=== PATIENT | male | born 1970 | race Hispanic/Latino ===

== ENCOUNTER → 2017-09-24 | Outpatient (CLI) | payer OTHER ==
[2017-09-24 08:30] LABS: BASOPHILS % (AUTO) 0.4 % (0.0-5.0); EOSINOPHILS % (AUTO) 2.4 % (0.0-8.0); HEMATOCRIT 43.8 % (42-54); LYMPHOCYTES % (AUTO) 42.9 % (21.0-51.0); MEAN CORPUSCULAR HEMOGLOBIN 30.2 pg (27.0-33.0); MEAN CORPUSCULAR HGB CONC 33.5 g/dL (32.0-36.0); MEAN CORPUSCULAR VOLUME 90.2 fL (79-99); MONOCYTES % (AUTO) 8.5 % (3.0-13.0); NEUTROPHILS % (AUTO) 45.8 % (40.0-77.0); PLATELET COUNT (AUTO) 234 K/uL (130-400); RED BLOOD CELL COUNT(AUTO) 4.86 MIL/uL (4.50-6.20); RED CELL DISTRIBUTION WIDTH 13.6 % (11.0-15.5); WHITE BLOOD COUNT (AUTO) 4.4 K/uL (4.8-10.8)
[2017-09-24 08:53] LABS: BILIRUBIN,TOTAL 0.5 mg/dL (0.2-1.0); CREATININE 1.2 mg/dL (0.5-1.5); POTASSIUM 4.1 mmol/L (3.5-5.1); THYROID STIMULATING HORMONE 0.96 uIU/mL (0.36-3.74); TOTAL PROTEIN, SERUM 7.6 g/dL (6.0-8.3); URIC ACID 6.4 mg/dL (2.6-7.2)
== END | disposition home or self-care (01) ==
LOC: LAB 07:43
PROVIDERS: ATTEND Internal Medicine
DX: I10 Essential (primary) hypertension (principal); E03.9 Hypothyroidism, unspecified; E78.5 Hyperlipidemia, unspecified
CPT/HCPCS: 36415; 80053; 84443; 84550; 85025

== ENCOUNTER 2018-06-10 19:03 | Emergency (ER) | payer OTHER ==
[2018-06-10 19:41] LABS: BASOPHILS % (AUTO) 0.3 % (0.0-5.0); EOSINOPHILS % (AUTO) 1.4 % (0.0-8.0); HEMATOCRIT 48.2 % (42-54); MEAN CORPUSCULAR HEMOGLOBIN 30.6 pg (27.0-33.0); MEAN CORPUSCULAR HGB CONC 33.8 g/dL (32.0-36.0); MEAN CORPUSCULAR VOLUME 90.4 fL (79-99); MONOCYTES % (AUTO) 6.3 % (3.0-13.0); NUCLEATED RED BLOOD CELLS 0.1 % (0.0-0.19); PLATELET COUNT (AUTO) 220 K/uL (130-400); RED BLOOD CELL COUNT(AUTO) 5.33 MIL/uL (4.50-6.20); RED CELL DISTRIBUTION WIDTH 13.4 % (11.0-15.5); WHITE BLOOD COUNT (AUTO) 5.4 K/uL (4.8-10.8)
[2018-06-10 19:53] LABS: CREATININE 1.1 mg/dL (0.5-1.5); POTASSIUM 3.7 mmol/L (3.5-5.1)
[2018-06-10 19:58] LABS: ALBUMIN 4.2 g/dL (3.5-5.0); BILIRUBIN,TOTAL 0.5 mg/dL (0.2-1.0); TOTAL PROTEIN, SERUM 8.6 g/dL (6.0-8.3)
== END 2018-06-10 21:14 | disposition home or self-care (01) ==
LOC: EDH 19:03
DX: I10 Essential (primary) hypertension (principal); F41.1 Generalized anxiety disorder; Z87.891 Personal history of nicotine dependence
CPT/HCPCS: 36415; 80053; 84484; 85025; 93005

== ENCOUNTER → 2018-09-30 | Outpatient (CLI) | payer OTHER ==
[2018-09-30 09:33] LABS: HEMOGLOBIN A1C 5.6 % (4.0-6.0)
[2018-09-30 09:42] LABS: BILIRUBIN,TOTAL 0.4 mg/dL (0.2-1.0); CREATININE 1.1 mg/dL (0.5-1.5); POTASSIUM 4.3 mmol/L (3.5-5.1); THYROID STIMULATING HORMONE 1.98 uIU/mL (0.36-3.74); TOTAL PROTEIN, SERUM 7.6 g/dL (6.0-8.3)
[2018-09-30 10:10] LABS: BASOPHILS % (AUTO) 0.3 % (0.0-5.0); EOSINOPHILS % (AUTO) 1.4 % (0.0-8.0); HEMATOCRIT 41.7 % (42-54); LYMPHOCYTES % (AUTO) 41.3 % (21.0-51.0); MEAN CORPUSCULAR HEMOGLOBIN 31.7 pg (27.0-33.0); MEAN CORPUSCULAR HGB CONC 34.8 g/dL (32.0-36.0); MEAN CORPUSCULAR VOLUME 91.2 fL (79-99); MONOCYTES % (AUTO) 7.6 % (3.0-13.0); NEUTROPHILS % (AUTO) 49.4 % (40.0-77.0); NUCLEATED RED BLOOD CELLS 0.1 % (0.0-0.19); PLATELET COUNT (AUTO) 227 K/uL (130-400); RED BLOOD CELL COUNT(AUTO) 4.57 MIL/uL (4.50-6.20); RED CELL DISTRIBUTION WIDTH 13.4 % (11.0-15.5); WHITE BLOOD COUNT (AUTO) 5.2 K/uL (4.8-10.8)
== END | disposition home or self-care (01) ==
LOC: LAB 08:43
PROVIDERS: ATTEND Internal Medicine
DX: Z13.1 Encounter for screening for diabetes mellitus (principal); E03.8 Other specified hypothyroidism; R10.13 Epigastric pain
CPT/HCPCS: 36415; 80053; 80061; 83013; 83036; 84443; 85025

== ENCOUNTER → 2019-04-27 | Outpatient (CLI) | payer OTHER ==
[2019-04-27 10:29] LABS: HEMATOCRIT 44.6 % (42-54); MEAN CORPUSCULAR HGB CONC 34.1 g/dL (32.0-36.0); MEAN CORPUSCULAR VOLUME 90.9 fL (79-99); PLATELET COUNT (AUTO) 214 K/uL (130-400); RED BLOOD CELL COUNT(AUTO) 4.91 MIL/uL (4.50-6.20); RED CELL DISTRIBUTION WIDTH 12.9 % (11.0-15.5); WHITE BLOOD COUNT (AUTO) 3.6 K/uL (4.8-10.8)
[2019-04-27 10:37] LABS: HEMOGLOBIN A1C 6.1 % (4.0-6.0)
[2019-04-27 10:39] LABS: BASOPHILS % (AUTO) 0.4 % (0.0-5.0); BILIRUBIN,DIRECT 0.1 mg/dL (0.0-0.3); BILIRUBIN,TOTAL 0.3 mg/dL (0.2-1.0); CREATININE 1.1 mg/dL (0.5-1.5); EOSINOPHILS % (AUTO) 2.3 % (0.0-8.0); LYMPHOCYTES % (AUTO) 39.5 % (21.0-51.0); NEUTROPHILS % (AUTO) 50.8 % (40.0-77.0); POTASSIUM 4.1 mmol/L (3.5-5.1); TOTAL PROTEIN, SERUM 7.6 g/dL (6.0-8.3)
== END | disposition home or self-care (01) ==
LOC: RAH 09:28
PROVIDERS: ATTEND Internal Medicine
DX: E78.5 Hyperlipidemia, unspecified (principal); I10 Essential (primary) hypertension; E55.9 Vitamin D deficiency, unspecified; R10.13 Epigastric pain; R00.2 Palpitations
CPT/HCPCS: 36415; 80053; 80061; 80076; 82043; 82570; 83013; 83036; 84402; 84403; 85025

== ENCOUNTER → 2019-05-11 | Outpatient (CLI) | payer OTHER | END | disposition home or self-care (01) | LOC: RAH 12:36 | PROVIDERS: ATTEND Internal Medicine | DX: S66.919A Strain of unspecified muscle, fascia and tendon at wrist and hand level, unspecified hand, initial encounter (principal); M13.842 Other specified arthritis, left hand; X58.XXXA Exposure to other specified factors, initial encounter; Y93.89 Activity, other specified; Y92.89 Other specified places as the place of occurrence of the external cause; Y99.8 Other external cause status | CPT/HCPCS: 73218 ==

== ENCOUNTER → 2019-09-27 | Outpatient (CLI) | payer OTHER ==
[2019-09-27 09:21] LABS: BASOPHILS % (AUTO) 0.1 % (0.0-5.0); LYMPHOCYTES % (AUTO) 7.9 % (21.0-51.0); MEAN CORPUSCULAR HGB CONC 34.1 g/dL (32.0-36.0); MEAN CORPUSCULAR VOLUME 88.1 fL (79-99); MONOCYTES % (AUTO) 3.3 % (3.0-13.0); NEUTROPHILS % (AUTO) 86.4 % (40.0-77.0); PLATELET COUNT (AUTO) 298 K/uL (130-400); RED BLOOD CELL COUNT(AUTO) 5.56 MIL/uL (4.50-6.20); RED CELL DISTRIBUTION WIDTH 12.7 % (11.0-15.5); WHITE BLOOD COUNT (AUTO) 11.2 K/uL (4.8-10.8)
[2019-09-27 09:32] LABS: HEMOGLOBIN A1C 6.2 % (4.0-6.0)
[2019-09-27 09:42] LABS: ALBUMIN 4.1 g/dL (3.5-5.0); BILIRUBIN,DIRECT 0.1 mg/dL (0.0-0.3); BILIRUBIN,TOTAL 0.4 mg/dL (0.2-1.0); CREATININE 1.1 mg/dL (0.5-1.5); POTASSIUM 4.3 mmol/L (3.5-5.1); THYROID STIMULATING HORMONE 1.19 uIU/mL (0.36-3.74); TOTAL PROTEIN, SERUM 8.5 g/dL (6.0-8.3)
== END | disposition home or self-care (01) ==
LOC: LAB 08:09
PROVIDERS: ATTEND Internal Medicine
DX: S66.912A Strain of unspecified muscle, fascia and tendon at wrist and hand level, left hand, initial encounter (principal); E78.5 Hyperlipidemia, unspecified; I10 Essential (primary) hypertension; R73.01 Impaired fasting glucose; X58.XXXA Exposure to other specified factors, initial encounter; Y93.89 Activity, other specified; Y92.89 Other specified places as the place of occurrence of the external cause; Y99.8 Other external cause status
CPT/HCPCS: 36415; 80053; 80061; 80076; 82043; 83036; 84403; 84443; 85025

== ENCOUNTER → 2020-01-11 | Outpatient (CLI) | payer OTHER ==
[2020-01-11 09:42] LABS: BASOPHILS % (AUTO) 0.4 % (0.0-5.0); EOSINOPHILS % (AUTO) 1.1 % (0.0-8.0); HEMATOCRIT 43.5 % (42-54); LYMPHOCYTES % (AUTO) 43.8 % (21.0-51.0); MEAN CORPUSCULAR HEMOGLOBIN 30.3 pg (27.0-33.0); MEAN CORPUSCULAR HGB CONC 33.6 g/dL (32.0-36.0); MEAN CORPUSCULAR VOLUME 90.2 fL (79-99); MONOCYTES % (AUTO) 7.1 % (3.0-13.0); NEUTROPHILS % (AUTO) 47.2 % (40.0-77.0); PLATELET COUNT (AUTO) 219 K/uL (130-400); RED BLOOD CELL COUNT(AUTO) 4.82 MIL/uL (4.50-6.20); RED CELL DISTRIBUTION WIDTH 12.8 % (11.0-15.5); WHITE BLOOD COUNT (AUTO) 5.3 K/uL (4.8-10.8)
[2020-01-11 09:49] LABS: HEMOGLOBIN A1C 6.3 % (4.0-6.0)
[2020-01-11 09:53] LABS: ALBUMIN 3.8 g/dL (3.5-5.0); BILIRUBIN,TOTAL 0.3 mg/dL (0.2-1.0); TOTAL PROTEIN, SERUM 7.4 g/dL (6.0-8.3)
== END | disposition home or self-care (01) ==
LOC: RAH 07:48
PROVIDERS: ATTEND Internal Medicine
DX: M17.12 Unilateral primary osteoarthritis, left knee (principal)
CPT/HCPCS: 36415; 73560; 80053; 80061; 82550; 83036; 85025

== ENCOUNTER → 2020-01-13 | Outpatient (CLI) | payer OTHER | END | disposition home or self-care (01) | LOC: RAH 12:25 | PROVIDERS: ATTEND Internal Medicine | DX: M47.12 Other spondylosis with myelopathy, cervical region (principal); G95.9 Disease of spinal cord, unspecified | CPT/HCPCS: 72141 ==

== ENCOUNTER → 2020-04-09 | Outpatient (CLI) | payer OTHER ==
[~2020-04-09] MED LIST: BACL10TA PO; NAPR-1174 PO; PANT40SU PO; VENL-61 PO
== END | disposition home or self-care (01) ==
LOC: RAH 10:53
PROVIDERS: ATTEND Internal Medicine
DX: K57.30 Diverticulosis of large intestine without perforation or abscess without bleeding (principal); R10.814 Left lower quadrant abdominal tenderness; K57.92 Diverticulitis of intestine, part unspecified, without perforation or abscess without bleeding
CPT/HCPCS: 74176

== ENCOUNTER 2020-04-12 23:07 | Observation (INO) | payer OTHER ==
[~2020-04-12] VITALS: Ht 172.7 cm; Wt 109.8 kg
[2020-04-12] MEDS ORDERED: TETANUS/DIPHTHERIA TOXOID [ADULT] 0.5 ML VIAL IM ONE (23:23)
[2020-04-13] VITALS (20 sets, daily range): BP systolic 95–144; BP diastolic 59–83
[2020-04-13] MEDS ORDERED: CEFAZOLIN SODIUM 1 GM VIAL ONE (00:36)
[2020-04-13] MEDS ORDERED: SODIUM CHLORIDE 0.9% 100 ML IV ONE (00:37)
[2020-04-13 00:52] LABS: BASOPHILS % (AUTO) 0.2 % (0.0-5.0); EOSINOPHILS % (AUTO) 2.4 % (0.0-8.0); HEMATOCRIT 39.7 % (42-54); LYMPHOCYTES % (AUTO) 28.9 % (21.0-51.0); MEAN CORPUSCULAR HEMOGLOBIN 30.4 pg (27.0-33.0); MEAN CORPUSCULAR HGB CONC 34.5 g/dL (32.0-36.0); MONOCYTES % (AUTO) 9.3 % (3.0-13.0); NEUTROPHILS % (AUTO) 58.9 % (40.0-77.0); PLATELET COUNT (AUTO) 216 K/uL (130-400); RED BLOOD CELL COUNT(AUTO) 4.51 MIL/uL (4.50-6.20); RED CELL DISTRIBUTION WIDTH 12.8 % (11.0-15.5); WHITE BLOOD COUNT (AUTO) 5.9 K/uL (4.8-10.8)
[2020-04-13 00:56] LABS: INR 0.91 (0.85-1.15); PARTIAL THROMBOPLASTIN TIME 27.8 SEC (26.3-35.5); PROTHROMBIN TIME 9.9 SEC (9.6-11.6)
[2020-04-13 01:09] LABS: CREATININE 0.9 mg/dL (0.5-1.5); POTASSIUM 3.5 mmol/L (3.5-5.1)
[2020-04-13 01:11] LABS: ALBUMIN 3.8 g/dL (3.5-5.0); BILIRUBIN,TOTAL 0.4 mg/dL (0.2-1.0); TOTAL PROTEIN, SERUM 7.7 g/dL (6.0-8.3)
--- NOTE | 2020-04-13 02:00 | NUR ---
ADMISSION PT ADMITTED FROM ER AMBULATORY WITH STEADY GAIT. ORIENTED TO ROOM AND CALL NG. A&OX3, RA. SMALL LACERATION TO RIGHT 3RD DIGIT. REPORTS NUMBNESS OF ALL FINGERS OF THE RIGHT HAND, NO TINGLING. CAP REFILL <2 SECONDS. RADIAL PULSE +2.
[2020-04-13] MEDS ORDERED: NAPR-1174 PO (02:35)
[2020-04-13] MEDS ORDERED: VENL-61 PO (02:43)
[2020-04-13] MEDS ORDERED: PANT40SU PO (02:47)
[2020-04-13] MEDS ORDERED: BACL10TA PO (02:48)
[2020-04-13 03:00] LABS: APPEARANCE,URINE Clear (CLEAR); BILIRUBIN,URINE Negative (NEGATIVE); COLOR,URINE Yellow (YELLOW); GLUCOSE, URINE (UA) Negative (NEGATIVE); KETONES,URINE Negative (NEGATIVE); LEUKOCYTE ESTERASE ,URINE Negative (NEGATIVE); NITRATE,URINE Negative (NEGATIVE); OCCULT BLOOD,URINE Negative (NEGATIVE); PH,URINE 5.5 (5.0-8.0); PROTEIN,URINE Negative (NEGATIVE)
--- NOTE | 2020-04-13 03:08 | NUR ---
ORDER CLARIFICATION CALL TO DR BORJA WRITTEN ORDER IS FOR TYLENOL #3 AND PT IS ALLERGIC TO CODEINE. PER DR BORJA CALL PHARMACY TO HAVE THEM SUBSTITUTE ANOTHER MEDICATION. CALL TO OFF SITE PHARMACIST HE IS UNABLE TO SUBSTITUTE MEDICATION OUT OF HIS SCOPE OF PRACTICE.
[2020-04-13] MEDS ORDERED: MORPHINE SULFATE 2 MG/ML 1ML SYG IVP PRN (05:15)
--- NOTE | 2020-04-13 07:45 | NUR ---
AM ASSESSMENT PT SITTING IN BED, HOB ELEVATED 30 DEGREES, RESTING. A/O X 3. NO SOB. NO DISTRESS NOTED. DENIES CHEST PAIN OR DISCOMFORT. DENIES PALPITATIONS. DENIES N/V AND/OR DIARRHEA. NPO STATUS REINFORCED. PT TO HAVE SX TO RT 3rd DIGIT BY DR BORJA. RT 3rD DIGIT BRUISED & EDEMATOUS. NO DRAINAGE NOTED. DENIES PAIN TO DIGIT. C/O NUMBNESS TO RT 3rd DIGIT. UP AD ISHAAN. INSTRUCTED TO CALL FOR ASSISTANCE. CALL BERENICE W/IN REACH.
--- NOTE | 2020-04-13 08:45 | NUR ---
STATUS PT TAKEN TO PRE-OP HOLDING VIA BED. [id number]
[2020-04-13] MEDS ORDERED: CEFAZOLIN SODIUM 1 GM VIAL IVP SCH (09:00)
[2020-04-13] MEDS ORDERED: LIDOCAINE HCL 1% 20 ML VIAL ONE (09:13)
--- NOTE | 2020-04-13 10:34 | NUR ---
DC PLAN PATIENT IN COVID UNIT SAW ORDER SAID MED SURGE WILL ASK CHARGE NURSE OF LOCATION. CALLED ROOM NO ANSWER CALLED CHUY VORA MOTHER [phone] NO ANSWER. Addendum: 04/13/20 at 1036 by JEET RAMOS RN CM Amended: Links added.
--- NOTE | 2020-04-13 11:20 | NUR ---
STATUS PT RECEIVED FROM PACU, S/P RT 3rd DIGIT PINNING. DG DRY & INTACT. NO BLEEDING, NO DRAINAGE NOTED. SLING TO RT ARM. EUGENIE PAIN OR DISCOMFORT @ THIS TIME. PT TO BE DISCHARGED HOME TODAY.
--- NOTE | 2020-04-13 13:00 | NUR ---
DISCHARGE VERBAL & WRITTEN DISCHARGE INSTRUCTIONS REVIEWED & GIVEN TO PT. QUESTIONS ENCOURAGED & CLARIFIED. PROPER CARE & ACTIVITY AFTER RT 3rd DIGIT PINNING REVIEWED. NEW PRESCRIBED MEDICATION REVIEWED. REINFORCED IMPORTANCE OF TAKING ABX INDICATED. PRESCRIPTION GIVEN TO PT. SIGNED COPY OF PRESCRIPTION PLACED IN CHART. IV DC'D @ THIS TIME. PT TO GATHER PERSONAL BELONGINGS. FAMILY MEMBER TO COUNTERINTELLIGENCE AGENT PT FROM HOSPITAL. PT TO NOTIFY STAFF WHEN FAMILY ARRIVES TO HOSPITAL.
--- NOTE | 2020-04-13 13:40 | NUR ---
DISCHARGE PT'S FAMILY HERE TO TAKE PT HOME. PT AMBULATED TO HOSPITAL EXIT,ACCOMPANIED BY MYSELF-Papito GRAMAJO RN. PT TOLERATED WELL. NO DISTRESS NOTED.
== END 2020-04-13 13:40 | disposition home or self-care (01) ==
LOC: EDH 23:07 → INTOOBSV 04-13 00:15 → EDHIP 04-13 00:15 → 2AH 04-13 02:21
PROVIDERS: ADMIT Surgery Plastic and Reconstructive Surgery; ATTEND Surgery Plastic and Reconstructive Surgery
DX: S62.632B Displaced fracture of distal phalanx of right middle finger, initial encounter for open fracture (principal); F32.9 Major depressive disorder, single episode, unspecified; Z88.5 Allergy status to narcotic agent; Z20.828 Contact with and (suspected) exposure to other viral communicable diseases; W23.0XXA Caught, crushed, jammed, or pinched between moving objects, initial encounter; Y93.89 Activity, other specified; Y92.89 Other specified places as the place of occurrence of the external cause; Y99.8 Other external cause status
CPT/HCPCS: 26765; 36415; 73130; 80053; 81003; 85025; 85610; 85730; 87426; 90471; 90714; 93005; 96374; 99285; A6445; G0378 ×13; J0690; U0003

== ENCOUNTER → 2020-05-22 | Outpatient (CLI) | payer OTHER ==
[2020-05-22 09:48] LABS: BASOPHILS % (AUTO) 0.5 % (0.0-5.0); HEMATOCRIT 43.4 % (42-54); LYMPHOCYTES % (AUTO) 32.4 % (21.0-51.0); MEAN CORPUSCULAR HGB CONC 33.6 g/dL (32.0-36.0); MEAN CORPUSCULAR VOLUME 89.3 fL (79-99); NEUTROPHILS % (AUTO) 56.8 % (40.0-77.0); PLATELET COUNT (AUTO) 235 K/uL (130-400); RED BLOOD CELL COUNT(AUTO) 4.86 MIL/uL (4.50-6.20); RED CELL DISTRIBUTION WIDTH 12.7 % (11.0-15.5)
[2020-05-22 09:59] LABS: APPEARANCE,URINE Clear (CLEAR); BILIRUBIN,URINE Negative (NEGATIVE); COLOR,URINE Yellow (YELLOW); GLUCOSE, URINE (UA) Negative (NEGATIVE); KETONES,URINE Negative (NEGATIVE); LEUKOCYTE ESTERASE ,URINE Negative (NEGATIVE); NITRATE,URINE Negative (NEGATIVE); OCCULT BLOOD,URINE Negative (NEGATIVE); PROTEIN,URINE Negative (NEGATIVE)
[2020-05-22 10:01] LABS: HEMOGLOBIN A1C 6.4 % (4.0-6.0)
[2020-05-22 10:12] LABS: ALBUMIN 3.9 g/dL (3.5-5.0); BILIRUBIN,TOTAL 0.4 mg/dL (0.2-1.0); CREATININE 0.9 mg/dL (0.5-1.5); POTASSIUM 4.3 mmol/L (3.5-5.1); THYROID STIMULATING HORMONE 1.69 uIU/mL (0.36-3.74); TOTAL PROTEIN, SERUM 7.9 g/dL (6.0-8.3)
== END | disposition home or self-care (01) ==
LOC: LAB 08:08
PROVIDERS: ATTEND Internal Medicine
DX: R73.01 Impaired fasting glucose (principal); G95.9 Disease of spinal cord, unspecified; F32.5 Major depressive disorder, single episode, in full remission; F41.1 Generalized anxiety disorder; K57.92 Diverticulitis of intestine, part unspecified, without perforation or abscess without bleeding; R10.814 Left lower quadrant abdominal tenderness
CPT/HCPCS: 36415; 80053; 80061; 81003; 83036; 84443; 85025; 87088

== ENCOUNTER 2020-08-08 19:13 | Emergency (ER) | payer OTHER ==
[2020-08-08] MEDS ORDERED: ONDANSETRON HCL 4 MG/2 ML VIAL ONE (20:52)
[2020-08-08] MEDS ORDERED: MORPHINE SULFATE 2 MG/ML 1ML SYG ONE (20:53)
[2020-08-08] MEDS ORDERED: SODIUM CHLORIDE 0.9% 1000ML 1,000 ML IV ONE (20:53)
[2020-08-08 21:03] LABS: APPEARANCE,URINE Clear (CLEAR); BILIRUBIN,URINE Negative (NEGATIVE); COLOR,URINE Dark Yellow (YELLOW); GLUCOSE, URINE (UA) Negative (NEGATIVE); KETONES,URINE Trace mg/dL (NEGATIVE); LEUKOCYTE ESTERASE ,URINE Negative (NEGATIVE); NITRATE,URINE Negative (NEGATIVE); OCCULT BLOOD,URINE Negative (NEGATIVE); PROTEIN,URINE Negative (NEGATIVE)
[2020-08-08 21:10] LABS: BASOPHILS % (AUTO) 0.2 % (0.0-5.0); EOSINOPHILS % (AUTO) 0.8 % (0.0-8.0); HEMATOCRIT 43.4 % (42-54); LYMPHOCYTES % (AUTO) 16.2 % (21.0-51.0); MEAN CORPUSCULAR HGB CONC 33.6 g/dL (32.0-36.0); MEAN CORPUSCULAR VOLUME 86.3 fL (79-99); NEUTROPHILS % (AUTO) 76.7 % (40.0-77.0); PLATELET COUNT (AUTO) 283 K/uL (130-400); RED BLOOD CELL COUNT(AUTO) 5.03 MIL/uL (4.50-6.20); RED CELL DISTRIBUTION WIDTH 12.6 % (11.0-15.5); WHITE BLOOD COUNT (AUTO) 8.6 K/uL (4.8-10.8)
[2020-08-08 21:15] LABS: CREATININE 1.2 mg/dL (0.5-1.5); POTASSIUM 3.9 mmol/L (3.5-5.1)
[2020-08-08 21:18] LABS: INR 0.92 (0.85-1.15); PARTIAL THROMBOPLASTIN TIME 25.9 SEC (26.3-35.5)
[2020-08-08 21:20] LABS: ALBUMIN 3.9 g/dL (3.5-5.0); BILIRUBIN,TOTAL 0.3 mg/dL (0.2-1.0); TOTAL PROTEIN, SERUM 8.2 g/dL (6.0-8.3)
[2020-08-08 21:23] LABS: LIPASE 105 U/L (114-286)
[2020-08-08] MEDS ORDERED: LEVOFLOXACIN 500 MG/D5W 100 ML 100 ML ONE (21:40)
[2020-08-08] MEDS ORDERED: METRONIDAZOLE 500MG/100ML BAG 100 ML ONE (21:40)
== END 2020-08-09 00:45 | disposition home or self-care (01) ==
LOC: EDH 19:13
DX: K57.30 Diverticulosis of large intestine without perforation or abscess without bleeding (principal); R11.2 Nausea with vomiting, unspecified; R19.7 Diarrhea, unspecified; F32.9 Major depressive disorder, single episode, unspecified; Z88.6 Allergy status to analgesic agent; Z79.899 Other long term (current) drug therapy; Z98.890 Other specified postprocedural states
CPT/HCPCS: 36415; 74176; 80053; 81003; 82270; 83605; 83690; 84145; 85025; 85610; 85730; 87046; 87324; 96361; 96365; 96366; 96367; 96375; 99284; J1956; J2405; J3490; J7030

== ENCOUNTER → 2020-08-14 | Outpatient (CLI) | payer OTHER ==
[2020-08-14 08:19] LABS: BASOPHILS % (AUTO) 0.2 % (0.0-5.0); EOSINOPHILS % (AUTO) 1.7 % (0.0-8.0); MEAN CORPUSCULAR HEMOGLOBIN 29.4 pg (27.0-33.0); MEAN CORPUSCULAR HGB CONC 33.4 g/dL (32.0-36.0); MONOCYTES % (AUTO) 7.5 % (3.0-13.0); NEUTROPHILS % (AUTO) 66.4 % (40.0-77.0); PLATELET COUNT (AUTO) 208 K/uL (130-400); RED BLOOD CELL COUNT(AUTO) 4.66 MIL/uL (4.50-6.20); RED CELL DISTRIBUTION WIDTH 13.1 % (11.0-15.5); WHITE BLOOD COUNT (AUTO) 5.9 K/uL (4.8-10.8)
[2020-08-14 08:42] LABS: ALBUMIN 3.7 g/dL (3.5-5.0); BILIRUBIN,DIRECT 0.1 mg/dL (0.0-0.3); BILIRUBIN,TOTAL 0.4 mg/dL (0.2-1.0); THYROID STIMULATING HORMONE 1.71 uIU/mL (0.36-3.74); TOTAL PROTEIN, SERUM 7.6 g/dL (6.0-8.3); URIC ACID 7.2 mg/dL (2.6-7.2)
[2020-08-14 08:53] LABS: HEMOGLOBIN A1C 6.8 % (4.0-6.0)
== END | disposition home or self-care (01) ==
LOC: LAB 07:41
PROVIDERS: ATTEND Internal Medicine
DX: S60.00XA Contusion of unspecified finger without damage to nail, initial encounter (principal); S62.639A Displaced fracture of distal phalanx of unspecified finger, initial encounter for closed fracture; M41.20 Other idiopathic scoliosis, site unspecified; K57.92 Diverticulitis of intestine, part unspecified, without perforation or abscess without bleeding; M47.816 Spondylosis without myelopathy or radiculopathy, lumbar region; M50.90 Cervical disc disorder, unspecified, unspecified cervical region; M54.12 Radiculopathy, cervical region; R73.01 Impaired fasting glucose
CPT/HCPCS: 36415; 80053; 80061; 80076; 82043; 83036; 84403; 84443; 84550; 85025

== ENCOUNTER 2020-08-15 11:56 | Emergency (ER) | payer OTHER ==
[2020-08-15] MEDS ORDERED: TETRACAINE HCL 0.5% 4 ML OPHTH SOLN ONE (12:41)
[2020-08-15] MEDS ORDERED: FLUORESCEIN SODIUM 1 STRIP STRIP ONE (12:41)
[2020-08-15] MEDS ORDERED: ONDANSETRON HCL 4 MG/2 ML VIAL ONE (12:41)
[2020-08-15] MEDS ORDERED: MORPHINE SULFATE 4 MG/1ML SYG ONE (12:42)
[2020-08-15] MEDS ORDERED: TETANUS/DIPHTHERIA TOXOID [ADULT] 0.5 ML VIAL IM ONE (12:43)
[2020-08-15] MEDS ORDERED: NA BORATE/BORIC AC/H2O/NACL 120 ML OPHTH IRRIG SOLN ONE (12:44)
== END 2020-08-15 14:06 | disposition home or self-care (01) ==
LOC: EDH 11:56
DX: T20.10XA Burn of first degree of head, face, and neck, unspecified site, initial encounter (principal); T31.0 Burns involving less than 10% of body surface; T65.91XA Toxic effect of unspecified substance, accidental (unintentional), initial encounter; Y92.098 Other place in other non-institutional residence as the place of occurrence of the external cause; F32.9 Major depressive disorder, single episode, unspecified; Z88.6 Allergy status to analgesic agent
CPT/HCPCS: 90714; 96374; 96375; 99284; J2270; J2405

== ENCOUNTER → 2020-11-20 | Outpatient (CLI) | payer OTHER ==
[~2020-11-20] MED LIST changes: +VENL-191 PO; -VENL-61 PO
[2020-11-20 08:25] LABS: BASOPHILS % (AUTO) 0.2 % (0.0-5.0); LYMPHOCYTES % (AUTO) 30.1 % (21.0-51.0); MEAN CORPUSCULAR HEMOGLOBIN 29.3 pg (27.0-33.0); MEAN CORPUSCULAR HGB CONC 33.9 g/dL (32.0-36.0); MEAN CORPUSCULAR VOLUME 86.3 fL (79-99); MONOCYTES % (AUTO) 7.8 % (3.0-13.0); NEUTROPHILS % (AUTO) 59.7 % (40.0-77.0); PLATELET COUNT (AUTO) 245 K/uL (130-400); RED BLOOD CELL COUNT(AUTO) 4.75 MIL/uL (4.50-6.20); RED CELL DISTRIBUTION WIDTH 12.8 % (11.0-15.5); WHITE BLOOD COUNT (AUTO) 4.5 K/uL (4.8-10.8)
[2020-11-20 08:33] LABS: HEMOGLOBIN A1C 6.8 % (4.0-6.0)
[2020-11-20 09:04] LABS: ALBUMIN 3.7 g/dL (3.5-5.0); BILIRUBIN,DIRECT 0.1 mg/dL (0.0-0.3); BILIRUBIN,TOTAL 0.3 mg/dL (0.2-1.0); CREATININE 1.1 mg/dL (0.5-1.5); POTASSIUM 3.9 mmol/L (3.5-5.1); THYROID STIMULATING HORMONE 2.74 uIU/mL (0.36-3.74); TOTAL PROTEIN, SERUM 7.8 g/dL (6.0-8.3)
== END | disposition home or self-care (01) ==
LOC: LAB 07:36
PROVIDERS: ATTEND Internal Medicine
DX: E34.9 Endocrine disorder, unspecified (principal); E78.5 Hyperlipidemia, unspecified; G95.9 Disease of spinal cord, unspecified; I10 Essential (primary) hypertension; K57.92 Diverticulitis of intestine, part unspecified, without perforation or abscess without bleeding
CPT/HCPCS: 36415; 80053; 80061; 80076; 82043; 82306; 82607; 83036; 84443; 85025

== ENCOUNTER → 2020-11-27 | Outpatient (CLI) | payer OTHER | END | disposition home or self-care (01) | LOC: LAB 08:14 | PROVIDERS: ATTEND Urology | DX: Z12.5 Encounter for screening for malignant neoplasm of prostate (principal); E29.1 Testicular hypofunction | CPT/HCPCS: 36415; 82679; 84153; 84154; 84270; 84402; 84403 ==

== ENCOUNTER → 2020-12-31 | Outpatient (CLI) | payer OTHER | END | disposition home or self-care (01) | LOC: OIH 10:46 | PROVIDERS: ATTEND Internal Medicine | DX: K76.0 Fatty (change of) liver, not elsewhere classified (principal); K57.92 Diverticulitis of intestine, part unspecified, without perforation or abscess without bleeding; L02.91 Cutaneous abscess, unspecified; N32.89 Other specified disorders of bladder; M47.815 Spondylosis without myelopathy or radiculopathy, thoracolumbar region | CPT/HCPCS: 74176 ==

== ENCOUNTER → 2021-01-01 | Outpatient (CLI) | payer OTHER ==
[2021-01-01 09:32] LABS: BASOPHILS % (AUTO) 0.1 % (0.0-5.0); EOSINOPHILS % (AUTO) 0.7 % (0.0-8.0); HEMATOCRIT 40.1 % (42-54); LYMPHOCYTES % (AUTO) 21.4 % (21.0-51.0); MEAN CORPUSCULAR HEMOGLOBIN 27.8 pg (27.0-33.0); MEAN CORPUSCULAR HGB CONC 31.9 g/dL (32.0-36.0); MEAN CORPUSCULAR VOLUME 87.2 fL (79-99); MONOCYTES % (AUTO) 8.8 % (3.0-13.0); NEUTROPHILS % (AUTO) 68.7 % (40.0-77.0); PLATELET COUNT (AUTO) 300 K/uL (130-400); RED CELL DISTRIBUTION WIDTH 12.5 % (11.0-15.5); WHITE BLOOD COUNT (AUTO) 7.6 K/uL (4.8-10.8)
[2021-01-01 09:37] LABS: APPEARANCE,URINE Turbid (CLEAR); BILIRUBIN,URINE Negative (NEGATIVE); COLOR,URINE Dark Yellow (YELLOW); GLUCOSE, URINE (UA) Negative (NEGATIVE); KETONES,URINE Negative (NEGATIVE); LEUKOCYTE ESTERASE ,URINE Small (NEGATIVE); NITRATE,URINE Negative (NEGATIVE); OCCULT BLOOD,URINE Negative (NEGATIVE); PROTEIN,URINE Negative (NEGATIVE)
[2021-01-01 09:47] LABS: BACTERIA,URINE None Seen /HPF (None Seen); RBC,URINE 0-1 /HPF (0-1); SQUAMOUS EPITHELIAL CELL,UR 0-2 /HPF (0-2); WBC,URINE 0-1 /HPF (0-1)
[2021-01-01 09:58] LABS: ALBUMIN 3.3 g/dL (3.5-5.0); BILIRUBIN,TOTAL 0.6 mg/dL (0.2-1.0); CREATININE 1.1 mg/dL (0.5-1.5); CRP QUANTITATIVE 165.5 mg/L (0.00-9.0); POTASSIUM 3.8 mmol/L (3.5-5.1)
[2021-01-01 10:40] LABS: ERYTHROCYTE SEDIMENTATION RATE 60 MM/HR (0-15)
== END | disposition home or self-care (01) ==
LOC: LAB 08:39
PROVIDERS: ATTEND Internal Medicine
DX: E78.5 Hyperlipidemia, unspecified (principal); I10 Essential (primary) hypertension; K57.92 Diverticulitis of intestine, part unspecified, without perforation or abscess without bleeding; R73.01 Impaired fasting glucose
CPT/HCPCS: 36415; 80053; 81001; 85025; 85651; 86140; 87088

== ENCOUNTER → 2021-03-12 | Outpatient (CLI) | payer OTHER ==
[2021-03-12 10:24] LABS: BASOPHILS % (AUTO) 0.3 % (0.0-5.0); EOSINOPHILS % (AUTO) 0.4 % (0.0-8.0); HEMATOCRIT 41.6 % (42-54); LYMPHOCYTES % (AUTO) 22.8 % (21.0-51.0); MEAN CORPUSCULAR HEMOGLOBIN 28.4 pg (27.0-33.0); MEAN CORPUSCULAR HGB CONC 32.9 g/dL (32.0-36.0); MEAN CORPUSCULAR VOLUME 86.3 fL (79-99); NEUTROPHILS % (AUTO) 68.6 % (40.0-77.0); PLATELET COUNT (AUTO) 293 K/uL (130-400); RED BLOOD CELL COUNT(AUTO) 4.82 MIL/uL (4.50-6.20); RED CELL DISTRIBUTION WIDTH 15.8 % (11.0-15.5); WHITE BLOOD COUNT (AUTO) 7.8 K/uL (4.8-10.8)
[2021-03-12 10:26] LABS: APPEARANCE,URINE Clear (CLEAR); BILIRUBIN,URINE Negative (NEGATIVE); COLOR,URINE Yellow (YELLOW); GLUCOSE, URINE (UA) Negative (NEGATIVE); KETONES,URINE Negative (NEGATIVE); LEUKOCYTE ESTERASE ,URINE Negative (NEGATIVE); NITRATE,URINE Negative (NEGATIVE); OCCULT BLOOD,URINE Negative (NEGATIVE); PROTEIN,URINE Negative (NEGATIVE)
[2021-03-12 10:39] LABS: BILIRUBIN,TOTAL 0.5 mg/dL (0.2-1.0); CRP QUANTITATIVE 158.3 mg/L (0.00-9.0); POTASSIUM 3.9 mmol/L (3.5-5.1); TOTAL PROTEIN, SERUM 7.6 g/dL (6.0-8.3)
[2021-03-12 11:29] LABS: ERYTHROCYTE SEDIMENTATION RATE 42 MM/HR (0-15)
== END | disposition home or self-care (01) ==
LOC: LAB 09:19
PROVIDERS: ATTEND Internal Medicine
DX: I10 Essential (primary) hypertension (principal); K57.92 Diverticulitis of intestine, part unspecified, without perforation or abscess without bleeding; R73.01 Impaired fasting glucose; E78.5 Hyperlipidemia, unspecified
CPT/HCPCS: 36415; 80053; 81003; 85025; 85651; 86140; 87088

== ENCOUNTER 2021-03-13 15:14 | Emergency (ER) | payer OTHER ==
[~2021-03-13] VITALS: Ht 170.2 cm; Wt 107.5 kg
[2021-03-13 15:17] VITALS: BP 146/92
[2021-03-13] MEDS ORDERED: ONDANSETRON 4MG INJ IVP ONE (17:30)
[2021-03-13] MEDS ORDERED: MORPHINE 4 MG SYG IVP ONE (17:30)
== END 2021-03-13 17:23 | disposition left against medical advice (07) ==
LOC: EDH 15:14
DX: R10.9 Unspecified abdominal pain (principal); Z53.21 Procedure and treatment not carried out due to patient leaving prior to being seen by health care provider

== ENCOUNTER → 2021-03-27 | Outpatient (CLI) | payer OTHER ==
[2021-03-27 09:27] LABS: BASOPHILS % (AUTO) 0.1 % (0.0-5.0); HEMATOCRIT 37.9 % (42-54); LYMPHOCYTES % (AUTO) 17.4 % (21.0-51.0); MEAN CORPUSCULAR HEMOGLOBIN 28.2 pg (27.0-33.0); MEAN CORPUSCULAR HGB CONC 32.5 g/dL (32.0-36.0); MEAN CORPUSCULAR VOLUME 86.9 fL (79-99); MONOCYTES % (AUTO) 5.6 % (3.0-13.0); PLATELET COUNT (AUTO) 329 K/uL (130-400); RED BLOOD CELL COUNT(AUTO) 4.36 MIL/uL (4.50-6.20); RED CELL DISTRIBUTION WIDTH 15.5 % (11.0-15.5); WHITE BLOOD COUNT (AUTO) 6.8 K/uL (4.8-10.8)
[2021-03-27 09:46] LABS: ALBUMIN 2.9 g/dL (3.5-5.0); BILIRUBIN,TOTAL 0.2 mg/dL (0.2-1.0); CRP QUANTITATIVE 50.6 mg/L (0.00-9.0); POTASSIUM 3.8 mmol/L (3.5-5.1); TOTAL PROTEIN, SERUM 7.3 g/dL (6.0-8.3)
[2021-03-27 09:50] LABS: APPEARANCE,URINE Clear (CLEAR); BILIRUBIN,URINE Negative (NEGATIVE); COLOR,URINE Yellow (YELLOW); GLUCOSE, URINE (UA) >=1000 mg/dL (NEGATIVE); KETONES,URINE Negative (NEGATIVE); LEUKOCYTE ESTERASE ,URINE Negative (NEGATIVE); NITRATE,URINE Negative (NEGATIVE); OCCULT BLOOD,URINE Negative (NEGATIVE); PROTEIN,URINE Negative (NEGATIVE)
[2021-03-27 09:53] LABS: BACTERIA,URINE Rare /HPF (None Seen); RBC,URINE 0-1 /HPF (0-1); SQUAMOUS EPITHELIAL CELL,UR Rare /HPF (0-2); WBC,URINE 0-1 /HPF (0-1)
[2021-03-27 10:47] LABS: ERYTHROCYTE SEDIMENTATION RATE 60 MM/HR (0-20)
== END | disposition home or self-care (01) ==
LOC: LAB 08:11
PROVIDERS: ATTEND Internal Medicine
DX: K57.92 Diverticulitis of intestine, part unspecified, without perforation or abscess without bleeding (principal); R10.32 Left lower quadrant pain; R10.9 Unspecified abdominal pain; R30.0 Dysuria
CPT/HCPCS: 36415; 80053; 81001; 85025; 85651; 86140; 87088

== ENCOUNTER 2021-03-29 11:55 | Inpatient (IN) | payer OTHER ==
[~2021-03-29] VITALS: Ht 172.7 cm; Wt 106.6 kg
[2021-03-29 12:25] VITALS: BP 119/84
[2021-03-29] MEDS ORDERED: MORPHINE 4 MG SYG IV ONE (12:30)
[2021-03-29] MEDS ORDERED: PIP/TAZ ZOSYN 3.375G 3.375 GM VIAL IVPB ONE (12:30)
[2021-03-29] MEDS ORDERED: ONDANSETRON 4MG INJ IVP ONE (12:30)
[2021-03-29 12:44] LABS: BASOPHILS % (AUTO) 0.2 % (0.0-5.0); EOSINOPHILS % (AUTO) 0.2 % (0.0-8.0); HEMATOCRIT 41.3 % (42-54); LYMPHOCYTES % (AUTO) 19.3 % (21.0-51.0); MEAN CORPUSCULAR HEMOGLOBIN 28.6 pg (27.0-33.0); MEAN CORPUSCULAR HGB CONC 32.4 g/dL (32.0-36.0); MEAN CORPUSCULAR VOLUME 88.1 fL (79-99); MONOCYTES % (AUTO) 4.6 % (3.0-13.0); PLATELET COUNT (AUTO) 276 K/uL (130-400); RED BLOOD CELL COUNT(AUTO) 4.69 MIL/uL (4.50-6.20); RED CELL DISTRIBUTION WIDTH 15.9 % (11.0-15.5); WHITE BLOOD COUNT (AUTO) 9.6 K/uL (4.8-10.8)
[2021-03-29] MEDS ORDERED: ZOSYN 3.375GM+NS 50ML 50 ML IV ONE (12:46)
[2021-03-29 12:57] LABS: INR 1.04 (0.85-1.15); PROTHROMBIN TIME 11.3 SEC (9.6-11.6)
[2021-03-29 12:58] LABS: PARTIAL THROMBOPLASTIN TIME 23.7 SEC (26.3-35.5)
[2021-03-29] MEDS ORDERED: 1/2 NS 1000ML 1,000 ML IV ONE (13:07)
[2021-03-29 13:12] LABS: AMYLASE 30 U/L (25-115); LIPASE 100 U/L (114-286)
[2021-03-29 13:12] LABS: CREATININE 0.9 mg/dL (0.5-1.5); POTASSIUM 3.8 mmol/L (3.5-5.1)
[2021-03-29 13:18] LABS: ALBUMIN 2.9 g/dL (3.5-5.0); BILIRUBIN,TOTAL 0.6 mg/dL (0.2-1.0); TOTAL PROTEIN, SERUM 7.5 g/dL (6.0-8.3)
[2021-03-29] MEDS: 1/2 NS 1000ML 1,000 ML IV SCH ×2 (14:30→23:40)
[2021-03-29 15:20] VITALS: BP 126/74
[2021-03-29 15:34] VITALS: BP 111/72
[2021-03-29] MEDS ORDERED: LACTATED RINGERS 1000ML 1,000 ML IV ONE (15:36)
[2021-03-29] MEDS: HYDROMORPHONE 0.5 MG SYG (0.5MG/0.5ML) IVP PRN ×2 (17:21→20:06)
[2021-03-29 20:00] VITALS: BP 111/73
[2021-03-29] MEDS: INVANZ 1GM+NS 50ML IVPB 50 ML IV SCH (21:30)
[2021-03-29 23:57] VITALS: BP 108/59
[2021-03-30] MEDS: HYDROMORPHONE 0.5 MG SYG (0.5MG/0.5ML) IVP PRN ×2 (03:14→20:47)
[2021-03-30 04:03] VITALS: BP 114/74
[2021-03-30 04:25] LABS: BASOPHILS % (AUTO) 0.2 % (0.0-5.0); EOSINOPHILS % (AUTO) 0.1 % (0.0-8.0); HEMATOCRIT 35.8 % (42-54); LYMPHOCYTES % (AUTO) 16.5 % (21.0-51.0); MEAN CORPUSCULAR HEMOGLOBIN 28.6 pg (27.0-33.0); MEAN CORPUSCULAR VOLUME 86.7 fL (79-99); MONOCYTES % (AUTO) 3.9 % (3.0-13.0); NEUTROPHILS % (AUTO) 78.6 % (40.0-77.0); PLATELET COUNT (AUTO) 258 K/uL (130-400); RED BLOOD CELL COUNT(AUTO) 4.13 MIL/uL (4.50-6.20); RED CELL DISTRIBUTION WIDTH 15.4 % (11.0-15.5); WHITE BLOOD COUNT (AUTO) 8.7 K/uL (4.8-10.8)
[2021-03-30 04:43] LABS: ALBUMIN 2.3 g/dL (3.5-5.0); BILIRUBIN,TOTAL 0.7 mg/dL (0.2-1.0); CREATININE 0.9 mg/dL (0.5-1.5); POTASSIUM 3.7 mmol/L (3.5-5.1); TOTAL PROTEIN, SERUM 6.4 g/dL (6.0-8.3)
[2021-03-30] MEDS ORDERED: COMPOUND IV MISC 1 EACH IVSOLN MISC PRN (07:00)
[2021-03-30 07:37] VITALS: BP 107/65
[2021-03-30] MEDS: 1/2 NS 1000ML 1,000 ML IV SCH ×3 (07:45→23:30)
[2021-03-30] MEDS: METRONIDAZOLE 250MG/50ML 50 ML IV SCH ×4 (08:00→23:31)
[2021-03-30] MEDS: HEPARIN 5,000 UNIT VIAL SQ SCH ×2 (11:20→20:50)
[2021-03-30] MEDS: INSULIN HUMULIN R 100 UNIT/ML 3ML SQ SCH ×3 (11:28→20:52)
[2021-03-30 12:32] VITALS: BP 102/61
[2021-03-30 16:47] VITALS: BP 105/69
[2021-03-30 20:00] VITALS: BP 114/72
[2021-03-30] MEDS: INVANZ 1GM+NS 50ML IVPB 50 ML IV SCH (20:42)
[2021-03-31] VITALS (7 sets, daily range): BP systolic 100–128; BP diastolic 58–89
[2021-03-31] MEDS: METRONIDAZOLE 250MG/50ML 50 ML IV SCH ×4 (05:53→23:54)
[2021-03-31] MEDS: INSULIN HUMULIN R 100 UNIT/ML 3ML SQ SCH ×4 (05:54→23:57)
[2021-03-31] MEDS: HYDROMORPHONE 0.5 MG SYG (0.5MG/0.5ML) IVP PRN ×3 (06:04→18:26)
[2021-03-31] MEDS: HEPARIN 5,000 UNIT VIAL SQ SCH ×2 (08:42→21:11)
[2021-03-31] MEDS: 1/2 NS 1000ML 1,000 ML IV SCH ×3 (11:24→21:08)
[2021-03-31] MEDS ORDERED: FAMOTIDINE 20MG VIAL IV ONE (12:52)
[2021-03-31] MEDS: ONDANSETRON 4MG INJ IVP PRN (18:34)
[2021-03-31] MEDS: FAMOTIDINE 20MG VIAL IV SCH (20:59)
[2021-03-31] MEDS: INVANZ 1GM+NS 50ML IVPB 50 ML IV SCH (20:59)
[2021-04-01 03:45] VITALS: BP 120/80
[2021-04-01] MEDS: 1/2 NS 1000ML 1,000 ML IV SCH ×2 (05:13→15:59)
[2021-04-01] MEDS: METRONIDAZOLE 250MG/50ML 50 ML IV SCH ×3 (05:14→13:45)
[2021-04-01] MEDS: ONDANSETRON 4MG INJ IVP PRN ×3 (05:16→21:32)
[2021-04-01] MEDS: HYDROMORPHONE 0.5 MG SYG (0.5MG/0.5ML) IVP PRN ×3 (05:17→21:33)
[2021-04-01] MEDS: INSULIN HUMULIN R 100 UNIT/ML 3ML SQ SCH ×3 (05:33→15:48)
[2021-04-01 07:35] VITALS: BP 126/76
[2021-04-01] MEDS: FAMOTIDINE 20MG VIAL IV SCH ×2 (10:07→21:33)
[2021-04-01] MEDS: HEPARIN 5,000 UNIT VIAL SQ SCH ×2 (10:08→21:47)
[2021-04-01 11:30] VITALS: BP 116/75
[2021-04-01] MEDS ORDERED: METRONIDAZOLE 500MG/100ML BAG 100 ML ONE (13:18)
[2021-04-01 15:30] VITALS: BP 122/80
[2021-04-01 19:58] VITALS: BP 128/73
[2021-04-01] MEDS: INVANZ 1GM+NS 50ML IVPB 50 ML IV SCH (21:33)
[2021-04-01 22:29] LABS: APPEARANCE,URINE Clear (CLEAR); BILIRUBIN,URINE Negative (NEGATIVE); COLOR,URINE Yellow (YELLOW); GLUCOSE, URINE (UA) Negative (NEGATIVE); KETONES,URINE >=80 mg/dL (NEGATIVE); LEUKOCYTE ESTERASE ,URINE Trace (NEGATIVE); NITRATE,URINE Negative (NEGATIVE); OCCULT BLOOD,URINE Negative (NEGATIVE); PH,URINE 5.5 (5.0-8.0); PROTEIN,URINE Negative (NEGATIVE)
[2021-04-01 22:40] LABS: BACTERIA,URINE None Seen /HPF (None Seen); RBC,URINE None Seen /HPF (0-1); SQUAMOUS EPITHELIAL CELL,UR Rare /HPF (0-2); WBC,URINE 0-1 /HPF (0-1)
[2021-04-02] VITALS: BP 125/81
[2021-04-02] MEDS: METRONIDAZOLE 250MG/50ML 50 ML IV SCH ×4 (00:02→18:34)
[2021-04-02] MEDS: HYDROMORPHONE 0.5 MG SYG (0.5MG/0.5ML) IVP PRN ×4 (03:49→23:33)
[2021-04-02] MEDS: ONDANSETRON 4MG INJ IVP PRN ×2 (03:49→12:11)
[2021-04-02 04:00] VITALS: BP 110/71
[2021-04-02] MEDS: INSULIN HUMULIN R 100 UNIT/ML 3ML SQ SCH ×4 (06:00→18:00)
[2021-04-02] MEDS: 1/2 NS 1000ML 1,000 ML IV SCH ×4 (06:35→22:30)
[2021-04-02 08:00] VITALS: BP 131/89
[2021-04-02] MEDS: FAMOTIDINE 20MG VIAL IV SCH ×2 (09:42→21:50)
[2021-04-02] MEDS: HEPARIN 5,000 UNIT VIAL SQ SCH ×2 (09:50→22:00)
[2021-04-02 10:58] VITALS: BP 114/68
[2021-04-02 17:09] VITALS: BP 119/80
[2021-04-02 19:00] VITALS: BP 143/84
[2021-04-02] MEDS: INVANZ 1GM+NS 50ML IVPB 50 ML IV SCH (21:53)
[2021-04-03] VITALS: BP 128/76
[2021-04-03 04:00] VITALS: BP 132/83
[2021-04-03] MEDS: INSULIN HUMULIN R 100 UNIT/ML 3ML SQ SCH ×4 (06:00→18:00)
[2021-04-03] MEDS: 1/2 NS 1000ML 1,000 ML IV SCH ×3 (06:30→21:58)
[2021-04-03] MEDS: METRONIDAZOLE 250MG/50ML 50 ML IV SCH ×4 (06:34→18:38)
[2021-04-03 08:17] VITALS: BP 120/82
[2021-04-03] MEDS: FAMOTIDINE 20MG VIAL IV SCH ×2 (09:07→19:59)
[2021-04-03] MEDS: HYDROMORPHONE 0.5 MG SYG (0.5MG/0.5ML) IVP PRN ×3 (09:08→21:58)
[2021-04-03] MEDS: HEPARIN 5,000 UNIT VIAL SQ SCH ×2 (09:14→21:18)
[2021-04-03 11:06] VITALS: BP 107/62
[2021-04-03 16:41] VITALS: BP 116/72
[2021-04-03 19:33] VITALS: BP 126/83
[2021-04-03] MEDS: ONDANSETRON 4MG INJ IVP PRN (21:17)
[2021-04-03] MEDS: INVANZ 1GM+NS 50ML IVPB 50 ML IV SCH (21:58)
[2021-04-04 00:06] VITALS: BP 130/85
[2021-04-04] MEDS: METRONIDAZOLE 250MG/50ML 50 ML IV SCH ×3 (00:22→12:00)
[2021-04-04] MEDS: HYDROMORPHONE 0.5 MG SYG (0.5MG/0.5ML) IVP PRN ×3 (02:57→14:55)
[2021-04-04] MEDS: ONDANSETRON 4MG INJ IVP PRN ×3 (02:59→14:54)
[2021-04-04 04:03] VITALS: BP 127/73
[2021-04-04] MEDS: INSULIN HUMULIN R 100 UNIT/ML 3ML SQ SCH ×3 (06:00→12:00)
[2021-04-04] MEDS: 1/2 NS 1000ML 1,000 ML IV SCH ×2 (06:30→14:19)
[2021-04-04 08:00] VITALS: BP 135/88
[2021-04-04] MEDS: FAMOTIDINE 20MG VIAL IV SCH (09:13)
[2021-04-04] MEDS: HEPARIN 5,000 UNIT VIAL SQ SCH (09:15)
[2021-04-04 12:00] VITALS: BP 139/82
== END 2021-04-04 16:20 | disposition home or self-care (01) | DRG 392 ==
LOC: EDH 11:55 → EDHIP 12:20 → 3DH 16:16
PROVIDERS: ADMIT Internal Medicine; ATTEND Internal Medicine
DX: K57.20 Diverticulitis of large intestine with perforation and abscess without bleeding (principal); I10 Essential (primary) hypertension; M19.90 Unspecified osteoarthritis, unspecified site; Z88.5 Allergy status to narcotic agent
CPT/HCPCS: 36415; 71045; 80053; 81001; 82150; 82948; 83605; 83690; 85025; 85610; 85730; 87040; 87088; 93005; G0378; J1170; J1335; J1644; J2270; J2405; J2543; J3490; J7120

== ENCOUNTER → 2021-03-29 | Outpatient (CLI) | payer OTHER | END | disposition home or self-care (01) | LOC: RAH 10:48 | PROVIDERS: ATTEND Internal Medicine | DX: K57.20 Diverticulitis of large intestine with perforation and abscess without bleeding (principal); K40.90 Unilateral inguinal hernia, without obstruction or gangrene, not specified as recurrent; K31.89 Other diseases of stomach and duodenum; K56.7 Ileus, unspecified | CPT/HCPCS: 74176 ==

== ENCOUNTER → 2021-04-12 | Outpatient (CLI) | payer OTHER ==
[~2021-04-12] MED LIST changes: -PANT40SU PO; -VENL-191 PO
[2021-04-12 12:18] LABS: APPEARANCE,URINE Clear (CLEAR); BILIRUBIN,URINE Negative (NEGATIVE); COLOR,URINE Yellow (YELLOW); GLUCOSE, URINE (UA) Negative (NEGATIVE); KETONES,URINE Negative (NEGATIVE); LEUKOCYTE ESTERASE ,URINE Small (NEGATIVE); NITRATE,URINE Negative (NEGATIVE); OCCULT BLOOD,URINE Negative (NEGATIVE); PH,URINE 7.5 (5.0-8.0); PROTEIN,URINE Negative (NEGATIVE); UROBILINOGEN,URINE 0.2 mg/dL (0.2-1.0)
[2021-04-12 12:25] LABS: BACTERIA,URINE Rare /HPF (None Seen); RBC,URINE 0-1 /HPF (0-1); SQUAMOUS EPITHELIAL CELL,UR Rare /HPF (0-2)
== END | disposition home or self-care (01) ==
LOC: RAH 10:43
PROVIDERS: ATTEND Internal Medicine
DX: Z09 Encounter for follow-up examination after completed treatment for conditions other than malignant neoplasm (principal); Z12.11 Encounter for screening for malignant neoplasm of colon; K57.32 Diverticulitis of large intestine without perforation or abscess without bleeding; K57.20 Diverticulitis of large intestine with perforation and abscess without bleeding; N30.90 Cystitis, unspecified without hematuria; R30.0 Dysuria
CPT/HCPCS: 76857; 81001; 87088

== ENCOUNTER 2021-05-08 01:10 | Emergency (ER) | payer OTHER ==
[~2021-05-08] VITALS: Ht 170.2 cm; Wt 101.6 kg
[2021-05-08 01:43] VITALS: BP 143/82
[2021-05-08 02:18] LABS: BASOPHILS % (AUTO) 0.2 % (0.0-5.0); EOSINOPHILS % (AUTO) 0.3 % (0.0-8.0); HEMATOCRIT 29.8 % (42-54); LYMPHOCYTES % (AUTO) 20.3 % (21.0-51.0); MEAN CORPUSCULAR HEMOGLOBIN 29.7 pg (27.0-33.0); MEAN CORPUSCULAR HGB CONC 33.9 g/dL (32.0-36.0); MEAN CORPUSCULAR VOLUME 87.6 fL (79-99); NEUTROPHILS % (AUTO) 72.5 % (40.0-77.0); PLATELET COUNT (AUTO) 212 K/uL (130-400); RED CELL DISTRIBUTION WIDTH 14.2 % (11.0-15.5); WHITE BLOOD COUNT (AUTO) 5.9 K/uL (4.8-10.8)
[2021-05-08 02:20] LABS: APPEARANCE,URINE Cloudy (CLEAR); BILIRUBIN,URINE Negative (NEGATIVE); COLOR,URINE Yellow (YELLOW); GLUCOSE, URINE (UA) >=1000 mg/dL (NEGATIVE); KETONES,URINE Negative (NEGATIVE); LEUKOCYTE ESTERASE ,URINE Small (NEGATIVE); NITRATE,URINE Negative (NEGATIVE); OCCULT BLOOD,URINE Moderate (NEGATIVE); PH,URINE 5.5 (5.0-8.0); PROTEIN,URINE Trace mg/dL (NEGATIVE); UROBILINOGEN,URINE 0.2 mg/dL (0.2-1.0)
[2021-05-08 02:27] LABS: CREATININE 0.8 mg/dL (0.5-1.5); POTASSIUM 3.9 mmol/L (3.5-5.1)
[2021-05-08 02:32] LABS: ALBUMIN 3.1 g/dL (3.5-5.0); BILIRUBIN,TOTAL 0.4 mg/dL (0.2-1.0); TOTAL PROTEIN, SERUM 7.5 g/dL (6.0-8.3)
[2021-05-08 02:39] LABS: BACTERIA,URINE None Seen /HPF (None Seen); SQUAMOUS EPITHELIAL CELL,UR Rare /HPF (0-2); WBC,URINE 26-50 /HPF (0-1)
[2021-05-08] MEDS ORDERED: CEFTRIAXONE 1G VIAL ONE (04:06)
[2021-05-08] MEDS ORDERED: INSULIN HUMULIN R 100 UNIT/ML 3ML ONE (04:08)
[2021-05-08] MEDS ORDERED: INSULIN HUMULIN R 100 UNIT/ML 3ML SQ ONE (04:30)
[2021-05-08] MEDS ORDERED: 0.9%NACL 1000ML 1,000 ML IV ONE (04:30)
[2021-05-08] MEDS ORDERED: CEFTRIAXONE 1G VIAL IVP ONE (04:30)
[2021-05-08] MEDS ORDERED: SULF1TAB42 PO (04:45)
[2021-05-08] MEDS ORDERED: METF-444 PO (04:45)
[2021-05-08 04:57] VITALS: BP 143/82
== END 2021-05-08 05:09 | disposition home or self-care (01) ==
LOC: EDH 01:10
DX: E11.65 Type 2 diabetes mellitus with hyperglycemia (principal); K57.20 Diverticulitis of large intestine with perforation and abscess without bleeding; N39.0 Urinary tract infection, site not specified; Z79.4 Long term (current) use of insulin; Z79.899 Other long term (current) drug therapy; Z88.5 Allergy status to narcotic agent
CPT/HCPCS: 36415; 80053; 81001; 82948; 85025; 87088; 96372; 96374; 99284; J0696; J1815

== ENCOUNTER 2021-05-17 16:13 | Inpatient (IN) | payer OTHER ==
[~2021-05-17] VITALS: Ht 170.2 cm; Wt 102.2 kg
[~2021-05-17 16:13] MED LIST changes: +METF-444 PO; +SULF1TAB42 PO
[2021-05-17] MEDS ORDERED: ACETAMINOPHEN 325 MG TAB PO PRN (17:30)
[2021-05-17] MEDS ORDERED: NITROGLYCERIN 0.4 MG SL TAB SL PRN (17:30)
[2021-05-17] MEDS ORDERED: ZOLPIDEM TARTRATE 5 MG TAB PO PRN (17:30)
[2021-05-17 17:52] LABS: HEMATOCRIT 42.6 % (42-54); MEAN CORPUSCULAR HEMOGLOBIN 29.3 pg (27.0-33.0); MEAN CORPUSCULAR HGB CONC 33.8 g/dL (32.0-36.0); MEAN CORPUSCULAR VOLUME 86.8 fL (79-99); RED BLOOD CELL COUNT(AUTO) 4.91 MIL/uL (4.50-6.20); RED CELL DISTRIBUTION WIDTH 13.8 % (11.0-15.5); WHITE BLOOD COUNT (AUTO) 6.7 K/uL (4.8-10.8)
[2021-05-17 17:53] VITALS: BP 160/105
[2021-05-17] MEDS ORDERED: 0.9%NACL 50ML 50 ML IV ONE (18:01)
[2021-05-17] MEDS: ZOSYN 3.375GM +NS 50ML IV SCH ×2 (18:18→20:36)
[2021-05-17] MEDS: 0.9%NACL 1000ML 1,000 ML IV SCH (18:18)
[2021-05-17] MEDS: ONDANSETRON 4MG INJ IVP PRN (18:19)
[2021-05-17] MEDS: MORPHINE 4 MG SYG IVP PRN ×2 (18:19→21:39)
[2021-05-17 18:27] LABS: CARBON DIOXIDE 24 mmol/L (21-32); CHLORIDE 102 mmol/L (101-111); CREATININE 0.8 mg/dL (0.5-1.5); GLOMERULAR FILTR. RATE CALC 109 mL/min (>60); GLUCOSE,RANDOM 166 mg/dL (70-105); POTASSIUM 3.5 mmol/L (3.5-5.1); SODIUM SERUM 137 mmol/L (136-145); UREA NITROGEN, BLOOD 13 mg/dL (7-18)
[2021-05-17 18:38] LABS: ALANINE AMINOTRANSFERASE 35 U/L (12-78); ASPARTATE AMINOTRANSFERASE 12 U/L (10-37); BILIRUBIN,TOTAL 0.5 mg/dL (0.2-1.0); CREATINE KINASE, TOTAL 62 U/L (21-232); MYOGLOBIN 30 ng/mL (10-92); TOTAL PROTEIN, SERUM 7.3 g/dL (6.0-8.3)
[2021-05-17 20:38] VITALS: BP 142/98
[2021-05-17] MEDS: METRONIDAZOLE 500MG/100ML BAG 100 ML IVPB SCH (21:38)
[2021-05-18 03:33] LABS: APPEARANCE,URINE Cloudy (CLEAR); BILIRUBIN,URINE Negative (NEGATIVE); COLOR,URINE Dark Yellow (YELLOW); GLUCOSE, URINE (UA) Negative (NEGATIVE); KETONES,URINE 15 mg/dL (NEGATIVE); LEUKOCYTE ESTERASE ,URINE Moderate (NEGATIVE); NITRATE,URINE Negative (NEGATIVE); OCCULT BLOOD,URINE Small (NEGATIVE); PH,URINE 5.5 (5.0-8.0); PROTEIN,URINE POS 1+ mg/dL (NEGATIVE)
[2021-05-18 03:52] LABS: RBC,URINE 0-1 /HPF (0-1)
[2021-05-18 03:53] LABS: BACTERIA,URINE Few /HPF (None Seen); WBC,URINE Full Field /HPF (0-1)
[2021-05-18] MEDS: 0.9%NACL 1000ML 1,000 ML IV SCH ×3 (06:29→22:00)
[2021-05-18] MEDS: METRONIDAZOLE 500MG/100ML BAG 100 ML IVPB SCH ×3 (06:29→21:59)
[2021-05-18 06:32] VITALS: BP 152/101
[2021-05-18] MEDS: MORPHINE 4 MG SYG IVP PRN ×3 (06:35→14:44)
[2021-05-18 07:19] LABS: BASOPHILS % (AUTO) 0.2 % (0.0-5.0); EOSINOPHILS % (AUTO) 0.5 % (0.0-8.0); HEMATOCRIT 40.7 % (42-54); LYMPHOCYTES % (AUTO) 22.6 % (21.0-51.0); MEAN CORPUSCULAR HEMOGLOBIN 28.8 pg (27.0-33.0); MEAN CORPUSCULAR HGB CONC 32.4 g/dL (32.0-36.0); MEAN CORPUSCULAR VOLUME 88.7 fL (79-99); MONOCYTES % (AUTO) 6.4 % (3.0-13.0); NEUTROPHILS % (AUTO) 69.7 % (40.0-77.0); PLATELET COUNT (AUTO) 277 K/uL (130-400); RED BLOOD CELL COUNT(AUTO) 4.59 MIL/uL (4.50-6.20); RED CELL DISTRIBUTION WIDTH 13.8 % (11.0-15.5); WHITE BLOOD COUNT (AUTO) 6.5 K/uL (4.8-10.8)
[2021-05-18 07:39] LABS: ALBUMIN 2.6 g/dL (3.5-5.0); BILIRUBIN,TOTAL 0.5 mg/dL (0.2-1.0); CREATININE 0.8 mg/dL (0.5-1.5); POTASSIUM 3.8 mmol/L (3.5-5.1); TOTAL PROTEIN, SERUM 6.3 g/dL (6.0-8.3)
[2021-05-18 08:00] VITALS: BP 138/97
[2021-05-18] MEDS: ZOSYN 3.375GM +NS 50ML IV SCH ×2 (10:05→17:16)
[2021-05-18 11:45] VITALS: BP 136/92
[2021-05-18 16:00] VITALS: BP 134/78
[2021-05-18] MEDS: KETOROLAC 30MG VIAL (30MG/ML) IV SCH ×2 (17:16→22:00)
[2021-05-18] MEDS: HYDROMORPHONE 1 MG INJ IVP PRN (17:17)
[2021-05-18 19:00] VITALS: BP 137/96
[2021-05-19] VITALS (7 sets, daily range): BP systolic 132–157; BP diastolic 89–104
[2021-05-19] MEDS: ZOSYN 3.375GM +NS 50ML IV SCH ×3 (01:37→17:08)
[2021-05-19] MEDS: HYDROMORPHONE 1 MG INJ IVP PRN ×3 (02:42→14:08)
[2021-05-19] MEDS: ONDANSETRON 4MG INJ IVP PRN (02:42)
[2021-05-19] MEDS: METRONIDAZOLE 500MG/100ML BAG 100 ML IVPB SCH ×3 (04:51→20:54)
[2021-05-19] MEDS: KETOROLAC 30MG VIAL (30MG/ML) IV SCH ×4 (04:51→20:55)
[2021-05-19 06:21] LABS: BASOPHILS % (AUTO) 0.1 % (0.0-5.0); EOSINOPHILS % (AUTO) 0.3 % (0.0-8.0); HEMATOCRIT 38.1 % (42-54); LYMPHOCYTES % (AUTO) 14.9 % (21.0-51.0); MEAN CORPUSCULAR HGB CONC 33.3 g/dL (32.0-36.0); MONOCYTES % (AUTO) 5.4 % (3.0-13.0); NEUTROPHILS % (AUTO) 78.9 % (40.0-77.0); PLATELET COUNT (AUTO) 264 K/uL (130-400); RED BLOOD CELL COUNT(AUTO) 4.38 MIL/uL (4.50-6.20); RED CELL DISTRIBUTION WIDTH 13.3 % (11.0-15.5)
[2021-05-19 06:40] LABS: CREATININE 0.8 mg/dL (0.5-1.5); POTASSIUM 3.6 mmol/L (3.5-5.1)
[2021-05-19] MEDS: 0.9%NACL 1000ML 1,000 ML IV SCH ×2 (10:30→22:30)
[2021-05-19] MEDS ORDERED: PANTOPRAZOLE 40 MG/VIAL IVP SCH (22:00)
[2021-05-20] MEDS: ZOSYN 3.375GM +NS 50ML IV SCH ×3 (00:45→17:12)
[2021-05-20 04:11] VITALS: BP 163/98
[2021-05-20] MEDS: KETOROLAC 30MG VIAL (30MG/ML) IV SCH ×4 (04:34→23:29)
[2021-05-20] MEDS: METRONIDAZOLE 500MG/100ML BAG 100 ML IVPB SCH ×3 (04:34→20:37)
[2021-05-20 05:09] LABS: BASOPHILS % (AUTO) 0.1 % (0.0-5.0); EOSINOPHILS % (AUTO) 0.1 % (0.0-8.0); HEMATOCRIT 37.9 % (42-54); LYMPHOCYTES % (AUTO) 7.8 % (21.0-51.0); MEAN CORPUSCULAR HEMOGLOBIN 28.9 pg (27.0-33.0); MEAN CORPUSCULAR HGB CONC 32.7 g/dL (32.0-36.0); MEAN CORPUSCULAR VOLUME 88.3 fL (79-99); MONOCYTES % (AUTO) 5.2 % (3.0-13.0); NEUTROPHILS % (AUTO) 86.4 % (40.0-77.0); PLATELET COUNT (AUTO) 268 K/uL (130-400); RED BLOOD CELL COUNT(AUTO) 4.29 MIL/uL (4.50-6.20); RED CELL DISTRIBUTION WIDTH 13.5 % (11.0-15.5); WHITE BLOOD COUNT (AUTO) 7.4 K/uL (4.8-10.8)
[2021-05-20] MEDS: 0.9%NACL 1000ML 1,000 ML IV SCH ×2 (05:30→15:38)
[2021-05-20 05:35] LABS: ALBUMIN 2.5 g/dL (3.5-5.0); BILIRUBIN,TOTAL 0.6 mg/dL (0.2-1.0); CREATININE 0.8 mg/dL (0.5-1.5); MAGNESIUM 1.7 mg/dL (1.80-2.40); POTASSIUM 3.5 mmol/L (3.5-5.1); TOTAL PROTEIN, SERUM 6.2 g/dL (6.0-8.3)
[2021-05-20] MEDS: MAGNESIUM 2GM PREMIX 50ML 50 ML IV PRN (06:14)
[2021-05-20 07:30] VITALS: BP 151/99
[2021-05-20] MEDS: HYDROMORPHONE 1 MG INJ IVP PRN ×3 (08:10→20:37)
[2021-05-20] MEDS: PANTOPRAZOLE 40 MG/VIAL IVP SCH (08:14)
[2021-05-20] MEDS: POLYETHYLENE GLYCOL 3350 17 GM POWD.PACK PO SCH (08:23)
[2021-05-20] MEDS: POTASSIUM CHLORIDE 20MEQ/100ML 100 ML IV PRN (13:58)
[2021-05-20 16:00] VITALS: BP 147/88
[2021-05-20 20:00] VITALS: BP 135/80
[2021-05-21] VITALS (7 sets, daily range): BP systolic 119–152; BP diastolic 75–94
[2021-05-21] MEDS: 0.9%NACL 1000ML 1,000 ML IV SCH ×3 (02:58→21:46)
[2021-05-21] MEDS: ZOSYN 3.375GM +NS 50ML IV SCH ×3 (02:59→16:49)
[2021-05-21 04:45] LABS: BASOPHILS % (AUTO) 0.2 % (0.0-5.0); EOSINOPHILS % (AUTO) 0.5 % (0.0-8.0); HEMATOCRIT 35.7 % (42-54); LYMPHOCYTES % (AUTO) 15.5 % (21.0-51.0); MEAN CORPUSCULAR HEMOGLOBIN 28.9 pg (27.0-33.0); MEAN CORPUSCULAR HGB CONC 32.2 g/dL (32.0-36.0); MEAN CORPUSCULAR VOLUME 89.7 fL (79-99); NEUTROPHILS % (AUTO) 75.5 % (40.0-77.0); PLATELET COUNT (AUTO) 241 K/uL (130-400); RED BLOOD CELL COUNT(AUTO) 3.98 MIL/uL (4.50-6.20); RED CELL DISTRIBUTION WIDTH 13.5 % (11.0-15.5); WHITE BLOOD COUNT (AUTO) 6.3 K/uL (4.8-10.8)
[2021-05-21 05:02] LABS: CREATININE 0.6 mg/dL (0.5-1.5)
[2021-05-21] MEDS: METRONIDAZOLE 500MG/100ML BAG 100 ML IVPB SCH ×3 (05:19→21:47)
[2021-05-21] MEDS: KETOROLAC 30MG VIAL (30MG/ML) IV SCH ×4 (05:19→23:36)
[2021-05-21] MEDS: POTASSIUM CHLORIDE 20MEQ/100ML 100 ML IV PRN ×2 (06:10→13:20)
[2021-05-21] MEDS: LIDOCAINE HCL-MPF 1% 2ML VIAL IV PRN ×2 (06:10→13:20)
[2021-05-21] MEDS ORDERED: BISACODYL 10 MG SUPP.RECT RC SCH (06:52)
[2021-05-21] MEDS: PANTOPRAZOLE 40 MG/VIAL IVP SCH (08:25)
[2021-05-21] MEDS: POLYETHYLENE GLYCOL 3350 17 GM POWD.PACK PO SCH (08:25)
[2021-05-21] MEDS: HYDROMORPHONE 1 MG INJ IVP PRN ×3 (10:37→21:48)
[2021-05-22] MEDS: ZOSYN 3.375GM +NS 50ML IV SCH ×3 (03:17→18:33)
[2021-05-22 03:52] VITALS: BP 144/88
[2021-05-22] MEDS: HYDROMORPHONE 1 MG INJ IVP PRN ×3 (04:19→15:30)
[2021-05-22 05:16] LABS: HEMATOCRIT 34.8 % (42-54); MEAN CORPUSCULAR HGB CONC 32.5 g/dL (32.0-36.0); MEAN CORPUSCULAR VOLUME 89.5 fL (79-99); RED BLOOD CELL COUNT(AUTO) 3.89 MIL/uL (4.50-6.20); RED CELL DISTRIBUTION WIDTH 13.7 % (11.0-15.5); WHITE BLOOD COUNT (AUTO) 5.6 K/uL (4.8-10.8)
[2021-05-22 05:29] LABS: ALBUMIN 2.3 g/dL (3.5-5.0); BILIRUBIN,TOTAL 0.4 mg/dL (0.2-1.0); CREATININE 0.7 mg/dL (0.5-1.5); POTASSIUM 3.2 mmol/L (3.5-5.1)
[2021-05-22] MEDS: METRONIDAZOLE 500MG/100ML BAG 100 ML IVPB SCH ×3 (05:33→21:38)
[2021-05-22] MEDS: KETOROLAC 30MG VIAL (30MG/ML) IV SCH ×4 (05:34→23:55)
[2021-05-22] MEDS: POTASSIUM CHLORIDE 20MEQ/100ML 100 ML IV PRN (06:41)
[2021-05-22] MEDS: LIDOCAINE HCL-MPF 1% 2ML VIAL IV PRN (06:42)
[2021-05-22] MEDS ORDERED: BISACODYL 10 MG SUPP.RECT RC SCH (07:00)
[2021-05-22 08:02] VITALS: BP 138/81
[2021-05-22] MEDS: PANTOPRAZOLE 40 MG/VIAL IVP SCH (08:34)
[2021-05-22] MEDS: POLYETHYLENE GLYCOL 3350 17 GM POWD.PACK PO SCH (09:00)
[2021-05-22] MEDS: 0.9%NACL 1000ML 1,000 ML IV SCH ×2 (09:07→18:33)
[2021-05-22 12:14] VITALS: BP 167/98
[2021-05-22] MEDS ORDERED: DEXTROSE 50%-WATER 50 ML DISP.SYRIN IV ONE (13:35)
[2021-05-22] MEDS: DEXTROSE 50%-WATER 50 ML DISP.SYRIN IV PRN (13:36)
[2021-05-22] MEDS ORDERED: GLUCAGON 1MG KIT 1 MG ML IM PRN (14:00)
[2021-05-22 20:20] VITALS: BP 154/93
[2021-05-23] VITALS (28 sets, daily range): BP systolic 109–158; BP diastolic 52–101
[2021-05-23] MEDS: ZOSYN 3.375GM +NS 50ML IV SCH (02:46)
[2021-05-23] MEDS: 0.9%NACL 1000ML 1,000 ML IV SCH ×2 (02:47→17:59)
[2021-05-23] MEDS: DEXTROSE 50%-WATER 50 ML DISP.SYRIN IV PRN (03:36)
[2021-05-23] MEDS: KETOROLAC 30MG VIAL (30MG/ML) IV SCH ×2 (04:50→11:29)
[2021-05-23 05:33] LABS: HEMATOCRIT 35.8 % (42-54); MEAN CORPUSCULAR HEMOGLOBIN 28.6 pg (27.0-33.0); MEAN CORPUSCULAR HGB CONC 32.4 g/dL (32.0-36.0); MEAN CORPUSCULAR VOLUME 88.4 fL (79-99); RED BLOOD CELL COUNT(AUTO) 4.05 MIL/uL (4.50-6.20); RED CELL DISTRIBUTION WIDTH 13.7 % (11.0-15.5); WHITE BLOOD COUNT (AUTO) 5.6 K/uL (4.8-10.8)
[2021-05-23 05:51] LABS: ALBUMIN 2.5 g/dL (3.5-5.0); BILIRUBIN,TOTAL 0.5 mg/dL (0.2-1.0); CREATININE 0.8 mg/dL (0.5-1.5); POTASSIUM 3.2 mmol/L (3.5-5.1); TOTAL PROTEIN, SERUM 6.6 g/dL (6.0-8.3)
[2021-05-23] MEDS: METRONIDAZOLE 500MG/100ML BAG 100 ML IVPB SCH ×4 (05:53→21:14)
[2021-05-23] MEDS: LIDOCAINE HCL-MPF 1% 2ML VIAL IV PRN (06:45)
[2021-05-23] MEDS: POTASSIUM CHLORIDE 20MEQ/100ML 100 ML IV PRN (06:45)
[2021-05-23] MEDS: DEXTROSE 5%-WATER 1,000 ML IV SCH ×2 (08:11→17:00)
[2021-05-23] MEDS: POLYETHYLENE GLYCOL 3350 17 GM POWD.PACK PO SCH (08:18)
[2021-05-23] MEDS: ONDANSETRON 4MG INJ IVP PRN ×2 (08:39→23:15)
[2021-05-23] MEDS: PANTOPRAZOLE 40 MG/VIAL IVP SCH (08:39)
[2021-05-23] MEDS ORDERED: ZOSYN 3.375GM+NS 50ML 50 ML IV SCH (13:00)
[2021-05-23] MEDS ORDERED: ZOSYN 3.375GM +NS 50ML IV SCH (13:00)
[2021-05-23] MEDS ORDERED: SUCCINYLCHOLINE CHLORIDE 20 MG/ML 10 ML VIAL ONE (13:28)
[2021-05-23] MEDS ORDERED: 0.9%NACL 1000ML 1,000 ML IV ONE (13:28)
[2021-05-23] MEDS ORDERED: LIDOCAINE HCL-MPF 1% 5ML AMP IJ ONE (13:28)
[2021-05-23] MEDS ORDERED: ONDANSETRON 4MG INJ ONE (13:28)
[2021-05-23] MEDS ORDERED: MIDAZOLAM HCL 1 MG/ML 2ML VIAL ONE (13:28)
[2021-05-23] MEDS ORDERED: ROCURONIUM 10MG/1ML SYR 10 MG/ML ML ONE ×2 (13:28→15:19)
[2021-05-23] MEDS ORDERED: PROPOFOL 10 MG/ML 20ML VIAL IV ONE (13:29)
[2021-05-23] MEDS ORDERED: FENTANYL CITRATE PF 50 MCG/1 ML 2ML VIAL ONE ×3 (13:29→17:44)
[2021-05-23] MEDS ORDERED: LIDOCAINE HCL 400MG/20ML VIAL ONE (15:33)
[2021-05-23] MEDS ORDERED: NEOSTIGMINE 5MG/5ML SYR IV ONE (17:38)
[2021-05-23] MEDS ORDERED: GLYCOPYRROLATE 1 MG/5 ML SYRINGE ONE (17:38)
[2021-05-23] MEDS: LACTATED RINGERS 1000ML 1,000 ML IV SCH (18:00)
[2021-05-23] MEDS ORDERED: MEPERIDINE-PF 25 MG/ML SYG ONE (18:20)
[2021-05-23] MEDS: FAMOTIDINE 20MG VIAL IV SCH (19:49)
[2021-05-23] MEDS ORDERED: EPHEDRINE SULFATE 50 MG/ML AMPULE IVP PRN (20:30)
[2021-05-23] MEDS ORDERED: ONDANSETRON 4MG INJ IVP PRN (20:30)
[2021-05-23] MEDS ORDERED: NALOXONE HCL 0.4 MG/1 ML ML IVP PRN ×3 (20:30)
[2021-05-23] MEDS ORDERED: DiphenhydrAMINE HCL 50 MG/ML VIAL IVP PRN (20:30)
[2021-05-23] MEDS: HEPARIN 5,000 UNIT VIAL SQ SCH (21:13)
[2021-05-23] MEDS: ROPIVACAINE 0.2% 100ML VIAL 100 ML EP SCH (23:06)
[2021-05-23] MEDS: ALBUTEROL 0.083% 2.5 MG/3 ML INH IH PRN (23:58)
[2021-05-24] VITALS: BP 111/65
[2021-05-24] MEDS: LACTATED RINGERS 1000ML 1,000 ML IV SCH ×5 (01:04→21:00)
[2021-05-24] MEDS ORDERED: KETOROLAC 30MG VIAL (30MG/ML) ONE (02:46)
[2021-05-24 04:00] VITALS: BP 143/86
[2021-05-24] MEDS: METRONIDAZOLE 500MG/100ML BAG 100 ML IVPB SCH ×3 (05:34→21:00)
[2021-05-24 05:51] LABS: MEAN CORPUSCULAR HEMOGLOBIN 28.8 pg (27.0-33.0); MEAN CORPUSCULAR HGB CONC 32.1 g/dL (32.0-36.0); MEAN CORPUSCULAR VOLUME 89.7 fL (79-99); RED BLOOD CELL COUNT(AUTO) 3.12 MIL/uL (4.50-6.20); RED CELL DISTRIBUTION WIDTH 13.5 % (11.0-15.5); WHITE BLOOD COUNT (AUTO) 4.8 K/uL (4.8-10.8)
[2021-05-24 06:07] LABS: CREATININE 0.7 mg/dL (0.5-1.5); POTASSIUM 3.6 mmol/L (3.5-5.1)
[2021-05-24 07:54] VITALS: BP 137/78
[2021-05-24] MEDS: ROPIVACAINE 0.2% 100ML VIAL 100 ML EP SCH ×2 (08:06→17:36)
[2021-05-24] MEDS: HEPARIN 5,000 UNIT VIAL SQ SCH ×3 (09:58→21:11)
[2021-05-24] MEDS: FAMOTIDINE 20MG VIAL IV SCH ×2 (09:59→20:59)
[2021-05-24] MEDS: PANTOPRAZOLE 40 MG/VIAL IVP SCH (09:59)
[2021-05-24 12:00] VITALS: BP 127/70
[2021-05-24] MEDS: ACETAMINOPHEN 325 MG TAB PO PRN (12:23)
[2021-05-24] MEDS: TRAMADOL HCL 50 MG TABLET PO PRN ×2 (14:46→20:59)
[2021-05-24 15:49] VITALS: BP 141/72
[2021-05-24 20:00] VITALS: BP 111/81
[2021-05-25] VITALS: BP 141/79
[2021-05-25] MEDS: ONDANSETRON 4MG INJ IVP PRN (00:17)
[2021-05-25] MEDS ORDERED: KETOROLAC 30MG VIAL (30MG/ML) ONE (00:19)
[2021-05-25] MEDS: ROPIVACAINE 0.2% 100ML VIAL 100 ML EP SCH (02:53)
[2021-05-25 04:00] VITALS: BP 116/69
[2021-05-25 04:42] LABS: HEMATOCRIT 22.6 % (42-54); MEAN CORPUSCULAR HEMOGLOBIN 28.6 pg (27.0-33.0); MEAN CORPUSCULAR HGB CONC 32.7 g/dL (32.0-36.0); MEAN CORPUSCULAR VOLUME 87.3 fL (79-99); RED BLOOD CELL COUNT(AUTO) 2.59 MIL/uL (4.50-6.20); RED CELL DISTRIBUTION WIDTH 13.5 % (11.0-15.5); WHITE BLOOD COUNT (AUTO) 4.5 K/uL (4.8-10.8)
[2021-05-25 04:57] LABS: CREATININE 0.7 mg/dL (0.5-1.5)
[2021-05-25] MEDS: METRONIDAZOLE 500MG/100ML BAG 100 ML IVPB SCH ×3 (05:00→22:01)
[2021-05-25 05:13] LABS: POTASSIUM 2.8 mmol/L (3.5-5.1)
[2021-05-25] MEDS ORDERED: LIDOCAINE HCL-MPF 1% 2ML VIAL ONE (05:18)
[2021-05-25] MEDS: POTASSIUM CHLORIDE 20MEQ/100ML 100 ML IV PRN ×2 (05:25→10:52)
[2021-05-25 07:16] VITALS: BP 100/63
[2021-05-25] MEDS ORDERED: CELECOXIB 200 MG CAP PO SCH (07:30)
[2021-05-25] MEDS ORDERED: LACTATED RINGERS 1000ML 1,000 ML IV ONE (08:00)
[2021-05-25] MEDS: TRAMADOL HCL 50 MG TABLET PO PRN ×3 (08:23→19:45)
[2021-05-25] MEDS: MULTIVITAMIN TABLET PO SCH (08:23)
[2021-05-25] MEDS: PANTOPRAZOLE 40 MG/VIAL IVP SCH (08:24)
[2021-05-25] MEDS: FAMOTIDINE 20MG VIAL IV SCH ×2 (08:24→19:46)
[2021-05-25] MEDS: HEPARIN 5,000 UNIT VIAL SQ SCH ×3 (08:42→19:52)
[2021-05-25 10:51] VITALS: BP 133/76
[2021-05-25] MEDS: LACTATED RINGERS 1000ML 1,000 ML IV SCH ×3 (10:53→19:49)
[2021-05-25] MEDS: ACETAMINOPHEN 325 MG TAB PO PRN ×2 (11:21→17:08)
[2021-05-25] MEDS: IBUPROFEN 800 MG TAB PO PRN (15:02)
[2021-05-25 16:59] VITALS: BP 140/76
[2021-05-25 20:00] VITALS: BP 143/83
[2021-05-26] VITALS (7 sets, daily range): BP systolic 124–151; BP diastolic 76–93
[2021-05-26] MEDS: IBUPROFEN 800 MG TAB PO PRN ×2 (00:02→20:55)
[2021-05-26] MEDS: TRAMADOL HCL 50 MG TABLET PO PRN ×3 (01:39→16:02)
[2021-05-26 04:44] LABS: CREATININE 0.5 mg/dL (0.5-1.5)
[2021-05-26 04:53] LABS: POTASSIUM 2.6 mmol/L (3.5-5.1)
[2021-05-26] MEDS ORDERED: LIDOCAINE HCL-MPF 1% 2ML VIAL ONE (04:55)
[2021-05-26] MEDS: POTASSIUM CHLORIDE 20MEQ/100ML 100 ML IV PRN ×2 (04:56→08:30)
[2021-05-26] MEDS: METRONIDAZOLE 500MG/100ML BAG 100 ML IVPB SCH ×3 (05:03→22:38)
[2021-05-26] MEDS: MAGNESIUM 2GM PREMIX 50ML 50 ML IV PRN (06:01)
[2021-05-26] MEDS ORDERED: POTASSIUM CHLORIDE 10% ELIXIR 20 MEQ/15 ML UDCUP ONE (06:24)
[2021-05-26] MEDS ORDERED: LIDOCAINE HCL-MPF 1% 2ML VIAL IV PRN (06:30)
[2021-05-26] MEDS ORDERED: POTASSIUM CHLORIDE 20MEQ/100ML 100 ML IV PRN (06:30)
[2021-05-26] MEDS ORDERED: POTASSIUM CHLORIDE 10% ELIXIR 20 MEQ/15 ML UDCUP PO PRN (06:30)
[2021-05-26] MEDS ORDERED: KCL 20 MEQ ERTAB PO PRN (06:30)
[2021-05-26] MEDS: FAMOTIDINE 20MG VIAL IV SCH ×2 (08:28→20:37)
[2021-05-26] MEDS: PANTOPRAZOLE 40 MG/VIAL IVP SCH (08:28)
[2021-05-26] MEDS: MULTIVITAMIN TABLET PO SCH (08:29)
[2021-05-26] MEDS: HEPARIN 5,000 UNIT VIAL SQ SCH ×3 (08:33→20:52)
[2021-05-26] MEDS: LACTATED RINGERS 1000ML 1,000 ML IV SCH ×2 (10:00→20:37)
[2021-05-26] MEDS: ONDANSETRON 4MG INJ IVP PRN ×2 (11:26→20:55)
[2021-05-26] MEDS ORDERED: KCL 20 MEQ ERTAB PO SCH (12:00)
[2021-05-26] MEDS ORDERED: PROMETHAZINE HCL 25 MG/ML 1ML AMPULE IM PRN (13:00)
[2021-05-26] MEDS ORDERED: POTASSIUM CHLORIDE 10% ELIXIR 20 MEQ/15 ML UDCUP PO SCH (17:00)
[2021-05-26] MEDS: ACETAMINOPHEN 325 MG TAB PO PRN (23:32)
[2021-05-27] MEDS: TRAMADOL HCL 50 MG TABLET PO PRN ×4 (02:32→22:39)
[2021-05-27 04:00] VITALS: BP 146/93
[2021-05-27] MEDS: LACTATED RINGERS 1000ML 1,000 ML IV SCH ×2 (05:53→10:00)
[2021-05-27] MEDS: METRONIDAZOLE 500MG/100ML BAG 100 ML IVPB SCH ×3 (05:53→22:37)
[2021-05-27] MEDS: IBUPROFEN 800 MG TAB PO PRN ×2 (05:55→15:01)
[2021-05-27] MEDS: ALBUTEROL 0.083% 2.5 MG/3 ML INH IH PRN (06:32)
[2021-05-27 07:44] VITALS: BP 114/67
[2021-05-27] MEDS: MULTIVITAMIN TABLET PO SCH (10:36)
[2021-05-27] MEDS: HEPARIN 5,000 UNIT VIAL SQ SCH ×3 (10:46→20:23)
[2021-05-27] MEDS: ONDANSETRON 4MG INJ IVP PRN ×3 (11:44→22:43)
[2021-05-27] MEDS: KCL 20 MEQ ERTAB PO SCH ×3 (11:45→20:20)
[2021-05-27 12:23] VITALS: BP 167/97
[2021-05-27 16:48] VITALS: BP 130/96
[2021-05-27 20:00] VITALS: BP 119/87
[2021-05-27] MEDS: FAMOTIDINE 20MG TAB PO SCH (20:21)
[2021-05-27] MEDS: ACETAMINOPHEN 325 MG TAB PO PRN (20:28)
[2021-05-28] VITALS: BP 127/89
[2021-05-28] MEDS: ACETAMINOPHEN 325 MG TAB PO PRN ×2 (02:10→14:50)
[2021-05-28 04:00] VITALS: BP 141/71
[2021-05-28] MEDS: METRONIDAZOLE 500MG/100ML BAG 100 ML IVPB SCH ×2 (04:31→14:50)
[2021-05-28] MEDS: TRAMADOL HCL 50 MG TABLET PO PRN ×2 (04:34→12:45)
[2021-05-28 04:52] LABS: MAGNESIUM 1.6 mg/dL (1.80-2.40); POTASSIUM 3.8 mmol/L (3.5-5.1)
[2021-05-28] MEDS ORDERED: METR500T PO (06:23)
[2021-05-28 08:00] VITALS: BP 146/88
[2021-05-28] MEDS: ONDANSETRON 4MG INJ IVP PRN (08:53)
[2021-05-28] MEDS: FAMOTIDINE 20MG TAB PO SCH (08:53)
[2021-05-28] MEDS: MULTIVITAMIN TABLET PO SCH (08:53)
[2021-05-28] MEDS: KCL 20 MEQ ERTAB PO SCH ×2 (08:54→14:50)
[2021-05-28] MEDS: HEPARIN 5,000 UNIT VIAL SQ SCH ×2 (08:56→14:57)
[2021-05-28] MEDS ORDERED: PANTOPRAZOLE 40 MG TAB DR PO SCH (09:00)
[2021-05-28 12:00] VITALS: BP 136/87
[2021-05-28 16:00] VITALS: BP 147/92
== END 2021-05-28 18:10 | disposition home or self-care (01) | DRG 329 ==
LOC: EDH 16:13 → OBSVTOIN 16:58 → EDHIP 16:58 → 4AH 05-18 06:14 → 3AH 05-18 06:15 → 3DH 05-20 17:32 → 4AH 05-23 19:35 → 4CH 05-27 10:25
PROVIDERS: ADMIT Internal Medicine; ATTEND Internal Medicine
PROC: 0DBP0ZZ Excision of Rectum, Open Approach (ICD-10-PCS; 2021-05-23)
PROC: 0D1B0ZP Bypass Ileum to Rectum, Open Approach (ICD-10-PCS; 2021-05-23)
PROC: 0DTE0ZZ Resection of Large Intestine, Open Approach (ICD-10-PCS; principal; 2021-05-23 13:59)
PROC: 0TQB0ZZ Repair Bladder, Open Approach (ICD-10-PCS; 2021-05-23 13:59)
DX: K57.20 Diverticulitis of large intestine with perforation and abscess without bleeding (principal); K65.1 Peritoneal abscess; N30.00 Acute cystitis without hematuria; N32.1 Vesicointestinal fistula; K56.609 Unspecified intestinal obstruction, unspecified as to partial versus complete obstruction; N40.0 Benign prostatic hyperplasia without lower urinary tract symptoms; E11.65 Type 2 diabetes mellitus with hyperglycemia; E66.9 Obesity, unspecified; E86.0 Dehydration; K59.00 Constipation, unspecified; D64.9 Anemia, unspecified; E11.649 Type 2 diabetes mellitus with hypoglycemia without coma; G89.29 Other chronic pain; I10 Essential (primary) hypertension; Z82.49 Family history of ischemic heart disease and other diseases of the circulatory system; Z83.3 Family history of diabetes mellitus; Z87.440 Personal history of urinary (tract) infections; Z87.891 Personal history of nicotine dependence; Z79.84 Long term (current) use of oral hypoglycemic drugs; Z88.5 Allergy status to narcotic agent; E87.6 Hypokalemia
CPT/HCPCS: 36415; 71045; 71046; 74018; 74176; 76857; 80048; 80053; 81001; 82550; 82948; 83605; 83735; 83874; 84132; 84484; 85025; 85027; 85651; 86850; 86900; 86901; 86923; 87040; 87088; 87635; 93005; 94640; A4344; A4606; C9113; G0378; J0330; J1170; J1644; J1885; J2175; J2250; J2270; J2405; J2543; J2704; J2710; J2795; J3010; J3475; J3480; J3490; J7030; J7070; J7120

== ENCOUNTER → 2021-06-11 | Outpatient (CLI) | payer OTHER ==
[~2021-06-11] MED LIST changes: -BACL10TA PO; -NAPR-1174 PO; -SULF1TAB42 PO
[2021-06-11 13:43] LABS: BASOPHILS % (AUTO) 0.3 % (0.0-5.0); EOSINOPHILS % (AUTO) 0.2 % (0.0-8.0); HEMATOCRIT 30.7 % (42-54); MEAN CORPUSCULAR HEMOGLOBIN 28.9 pg (27.0-33.0); MEAN CORPUSCULAR HGB CONC 31.6 g/dL (32.0-36.0); MEAN CORPUSCULAR VOLUME 91.4 fL (79-99); MONOCYTES % (AUTO) 4.3 % (3.0-13.0); NEUTROPHILS % (AUTO) 81.2 % (40.0-77.0); PLATELET COUNT (AUTO) 440 K/uL (130-400); RED BLOOD CELL COUNT(AUTO) 3.36 MIL/uL (4.50-6.20); RED CELL DISTRIBUTION WIDTH 15.5 % (11.0-15.5); WHITE BLOOD COUNT (AUTO) 10.1 K/uL (4.8-10.8)
[2021-06-11 13:58] LABS: ALBUMIN 2.9 g/dL (3.5-5.0); BILIRUBIN,TOTAL 0.2 mg/dL (0.2-1.0); CREATININE 0.9 mg/dL (0.5-1.5); TOTAL PROTEIN, SERUM 6.8 g/dL (6.0-8.3)
== END | disposition home or self-care (01) ==
LOC: LAB 09:32
PROVIDERS: ATTEND Internal Medicine
DX: K57.92 Diverticulitis of intestine, part unspecified, without perforation or abscess without bleeding (principal); L02.215 Cutaneous abscess of perineum; N32.1 Vesicointestinal fistula; N39.0 Urinary tract infection, site not specified
CPT/HCPCS: 36415; 80053; 85025

== ENCOUNTER → 2021-06-13 | Outpatient (CLI) | payer OTHER ==
[2021-06-13 16:54] LABS: EOSINOPHILS % (AUTO) 0.3 % (0.0-8.0); HEMATOCRIT 29.8 % (42-54); LYMPHOCYTES % (AUTO) 15.4 % (21.0-51.0); MEAN CORPUSCULAR HEMOGLOBIN 29.1 pg (27.0-33.0); MEAN CORPUSCULAR HGB CONC 31.9 g/dL (32.0-36.0); MEAN CORPUSCULAR VOLUME 91.4 fL (79-99); NEUTROPHILS % (AUTO) 77.5 % (40.0-77.0); PLATELET COUNT (AUTO) 362 K/uL (130-400); RED BLOOD CELL COUNT(AUTO) 3.26 MIL/uL (4.50-6.20); RED CELL DISTRIBUTION WIDTH 15.9 % (11.0-15.5)
[2021-06-13 17:10] LABS: INR 0.94 (0.85-1.15); PROTHROMBIN TIME 10.3 SEC (9.6-11.6)
[2021-06-13 17:11] LABS: B-TYPE NATRIURETIC PEPTIDE 13 pg/mL (0-100)
[2021-06-13 17:12] LABS: PARTIAL THROMBOPLASTIN TIME 22.9 SEC (26.3-35.5)
[2021-06-13 18:12] LABS: ERYTHROCYTE SEDIMENTATION RATE 25 MM/HR (0-20)
[2021-06-13 18:19] LABS: CREATINE KINASE, TOTAL 104 U/L (21-232)
[2021-06-13 18:25] LABS: CRP QUANTITATIVE < 2.00 mg/L (0.00-9.0)
== END | disposition home or self-care (01) ==
LOC: LAB 15:43
PROVIDERS: ATTEND Internal Medicine
DX: M79.10 Myalgia, unspecified site (principal); E86.0 Dehydration
CPT/HCPCS: 36415; 82550; 83880; 84484; 85025; 85378; 85610; 85651; 85730; 86140

== ENCOUNTER → 2021-06-27 | Outpatient (CLI) | payer OTHER ==
[2021-06-27 14:41] LABS: BASOPHILS % (AUTO) 0.2 % (0.0-5.0); EOSINOPHILS % (AUTO) 0.7 % (0.0-8.0); HEMATOCRIT 32.6 % (42-54); LYMPHOCYTES % (AUTO) 21.2 % (21.0-51.0); MEAN CORPUSCULAR HEMOGLOBIN 28.7 pg (27.0-33.0); MEAN CORPUSCULAR HGB CONC 31.3 g/dL (32.0-36.0); MEAN CORPUSCULAR VOLUME 91.6 fL (79-99); MONOCYTES % (AUTO) 7.4 % (3.0-13.0); NEUTROPHILS % (AUTO) 69.8 % (40.0-77.0); PLATELET COUNT (AUTO) 275 K/uL (130-400); RED BLOOD CELL COUNT(AUTO) 3.56 MIL/uL (4.50-6.20); RED CELL DISTRIBUTION WIDTH 15.9 % (11.0-15.5); WHITE BLOOD COUNT (AUTO) 6.1 K/uL (4.8-10.8)
[2021-06-27 14:53] LABS: INR 0.91 (0.85-1.15)
[2021-06-27 14:54] LABS: PARTIAL THROMBOPLASTIN TIME 22.8 SEC (26.3-35.5)
[2021-06-27 14:57] LABS: CRP QUANTITATIVE 14.6 mg/L (0.00-9.0)
[2021-06-27 15:04] LABS: B-TYPE NATRIURETIC PEPTIDE 18 pg/mL (0-100)
[2021-06-27 15:46] LABS: ERYTHROCYTE SEDIMENTATION RATE 15 MM/HR (0-20)
== END | disposition home or self-care (01) ==
LOC: LAB 08:44
PROVIDERS: ATTEND Internal Medicine
DX: E86.0 Dehydration (principal); M79.10 Myalgia, unspecified site
CPT/HCPCS: 36415; 82550; 83880; 84484; 85025; 85378; 85610; 85651; 85730; 86140

== ENCOUNTER → 2021-08-08 | Outpatient (CLI) | payer OTHER ==
[2021-08-08 09:00] LABS: BASOPHILS % (AUTO) 0.5 % (0.0-5.0); EOSINOPHILS % (AUTO) 0.8 % (0.0-8.0); LYMPHOCYTES % (AUTO) 32.4 % (21.0-51.0); MEAN CORPUSCULAR HEMOGLOBIN 25.9 pg (27.0-33.0); MEAN CORPUSCULAR HGB CONC 30.5 g/dL (32.0-36.0); MEAN CORPUSCULAR VOLUME 84.8 fL (79-99); MONOCYTES % (AUTO) 6.8 % (3.0-13.0); NEUTROPHILS % (AUTO) 57.3 % (40.0-77.0); PLATELET COUNT (AUTO) 356 K/uL (130-400); RED CELL DISTRIBUTION WIDTH 15.7 % (11.0-15.5); WHITE BLOOD COUNT (AUTO) 6.3 K/uL (4.8-10.8)
[2021-08-08 09:07] LABS: HEMOGLOBIN A1C 10.8 % (4.0-6.0)
[2021-08-08 09:23] LABS: ALBUMIN 3.1 g/dL (3.5-5.0); BILIRUBIN,TOTAL 0.2 mg/dL (0.2-1.0); CREATININE 0.9 mg/dL (0.5-1.5); POTASSIUM 3.6 mmol/L (3.5-5.1); THYROID STIMULATING HORMONE 3.33 uIU/mL (0.36-3.74); TOTAL PROTEIN, SERUM 7.1 g/dL (6.0-8.3)
== END | disposition home or self-care (01) ==
LOC: LAB 08:11
PROVIDERS: ATTEND Internal Medicine
DX: E11.65 Type 2 diabetes mellitus with hyperglycemia (principal); G47.62 Sleep related leg cramps; R19.7 Diarrhea, unspecified; Z90.49 Acquired absence of other specified parts of digestive tract
CPT/HCPCS: 36415; 80053; 83036; 84443; 85025

== ENCOUNTER → 2021-09-12 | Outpatient (CLI) | payer OTHER ==
[2021-09-12 08:29] LABS: BASOPHILS % (AUTO) 0.2 % (0.0-5.0); EOSINOPHILS % (AUTO) 0.2 % (0.0-8.0); HEMATOCRIT 40.8 % (42-54); LYMPHOCYTES % (AUTO) 11.9 % (21.0-51.0); MEAN CORPUSCULAR HEMOGLOBIN 27.6 pg (27.0-33.0); MEAN CORPUSCULAR HGB CONC 32.6 g/dL (32.0-36.0); MEAN CORPUSCULAR VOLUME 84.6 fL (79-99); MONOCYTES % (AUTO) 5.2 % (3.0-13.0); NEUTROPHILS % (AUTO) 80.9 % (40.0-77.0); NUCLEATED RED BLOOD CELLS 0.4 % (0.0-0.19); PLATELET COUNT (AUTO) 242 K/uL (130-400); RED BLOOD CELL COUNT(AUTO) 4.82 MIL/uL (4.50-6.20); RED CELL DISTRIBUTION WIDTH 18.2 % (11.0-15.5)
[2021-09-12 08:45] LABS: HEMOGLOBIN A1C 9.2 % (4.0-6.0)
[2021-09-12 09:04] LABS: ALBUMIN 3.6 g/dL (3.5-5.0); BILIRUBIN,DIRECT 0.1 mg/dL (0.0-0.3); BILIRUBIN,TOTAL 0.4 mg/dL (0.2-1.0); CREATININE 0.9 mg/dL (0.5-1.5); POTASSIUM 3.8 mmol/L (3.5-5.1); THYROID STIMULATING HORMONE 1.19 uIU/mL (0.36-3.74); TOTAL PROTEIN, SERUM 7.4 g/dL (6.0-8.3)
== END | disposition home or self-care (01) ==
LOC: LAB 07:33
PROVIDERS: ATTEND Internal Medicine
DX: Z12.5 Encounter for screening for malignant neoplasm of prostate (principal); D64.9 Anemia, unspecified; G47.62 Sleep related leg cramps; E11.65 Type 2 diabetes mellitus with hyperglycemia
CPT/HCPCS: 36415; 80053; 80061; 80076; 82043; 82607; 82728; 83036; 84153; 84154; 84443; 85025

== ENCOUNTER → 2021-10-15 | Outpatient (CLI) | payer OTHER ==
[2021-10-15 08:38] LABS: BASOPHILS % (AUTO) 0.4 % (0.0-5.0); HEMATOCRIT 34.6 % (42-54); LYMPHOCYTES % (AUTO) 18.2 % (21.0-51.0); MEAN CORPUSCULAR HEMOGLOBIN 27.9 pg (27.0-33.0); MEAN CORPUSCULAR HGB CONC 32.9 g/dL (32.0-36.0); MEAN CORPUSCULAR VOLUME 84.6 fL (79-99); NEUTROPHILS % (AUTO) 71.2 % (40.0-77.0); PLATELET COUNT (AUTO) 188 K/uL (130-400); RED BLOOD CELL COUNT(AUTO) 4.09 MIL/uL (4.50-6.20); RED CELL DISTRIBUTION WIDTH 18.7 % (11.0-15.5)
[2021-10-15 08:58] LABS: ALBUMIN 2.8 g/dL (3.5-5.0); BILIRUBIN,DIRECT 0.1 mg/dL (0.0-0.3); BILIRUBIN,TOTAL 0.2 mg/dL (0.2-1.0); CREATININE 0.8 mg/dL (0.5-1.5); POTASSIUM 3.8 mmol/L (3.5-5.1); THYROID STIMULATING HORMONE 1.23 uIU/mL (0.36-3.74); TOTAL PROTEIN, SERUM 6.1 g/dL (6.0-8.3)
== END | disposition home or self-care (01) ==
LOC: LAB 08:06
PROVIDERS: ATTEND Internal Medicine
DX: Z12.5 Encounter for screening for malignant neoplasm of prostate (principal); D64.9 Anemia, unspecified; E11.65 Type 2 diabetes mellitus with hyperglycemia; G47.62 Sleep related leg cramps
CPT/HCPCS: 36415; 80053; 80061; 82043; 82248; 83036; 84153; 84443; 85025

== ENCOUNTER → 2021-10-18 | Outpatient (CLI) | payer OTHER ==
[2021-10-18 12:26] LABS: BASOPHILS % (AUTO) 0.5 % (0.0-5.0); EOSINOPHILS % (AUTO) 0.3 % (0.0-8.0); HEMATOCRIT 34.7 % (42-54); MEAN CORPUSCULAR HEMOGLOBIN 27.5 pg (27.0-33.0); MEAN CORPUSCULAR HGB CONC 33.4 g/dL (32.0-36.0); MEAN CORPUSCULAR VOLUME 82.2 fL (79-99); MONOCYTES % (AUTO) 4.8 % (3.0-13.0); NEUTROPHILS % (AUTO) 77.5 % (40.0-77.0); NUCLEATED RED BLOOD CELLS 0.3 % (0.0-0.19); PLATELET COUNT (AUTO) 184 K/uL (130-400); RED BLOOD CELL COUNT(AUTO) 4.22 MIL/uL (4.50-6.20); RED CELL DISTRIBUTION WIDTH 18.3 % (11.0-15.5); WHITE BLOOD COUNT (AUTO) 6.2 K/uL (4.8-10.8)
[2021-10-18 12:30] LABS: APPEARANCE,URINE Clear (CLEAR); BILIRUBIN,URINE Negative (NEGATIVE); COLOR,URINE Yellow (YELLOW); GLUCOSE, URINE (UA) >=1000 mg/dL (NEGATIVE); KETONES,URINE Negative (NEGATIVE); LEUKOCYTE ESTERASE ,URINE Negative (NEGATIVE); NITRATE,URINE Negative (NEGATIVE); OCCULT BLOOD,URINE Negative (NEGATIVE); PH,URINE 5.5 (5.0-8.0); PROTEIN,URINE Negative (NEGATIVE); UROBILINOGEN,URINE 0.2 mg/dL (0.2-1.0)
[2021-10-18 12:33] LABS: BACTERIA,URINE Rare /HPF (None Seen); RBC,URINE 0-1 /HPF (0-1); SQUAMOUS EPITHELIAL CELL,UR Rare /HPF (0-2); WBC,URINE 0-1 /HPF (0-1)
[2021-10-18 12:54] LABS: ALBUMIN 2.8 g/dL (3.5-5.0); BILIRUBIN,TOTAL 0.2 mg/dL (0.2-1.0); CREATININE 1.2 mg/dL (0.5-1.5); MAGNESIUM 1.7 mg/dL (1.80-2.40); POTASSIUM 3.6 mmol/L (3.5-5.1); THYROID STIMULATING HORMONE 0.5 uIU/mL (0.36-3.74); TOTAL PROTEIN, SERUM 6.3 g/dL (6.0-8.3)
[2021-10-18 12:58] LABS: B-TYPE NATRIURETIC PEPTIDE 6 pg/mL (0-100)
== END | disposition home or self-care (01) ==
LOC: LAB 11:42
PROVIDERS: ATTEND Internal Medicine
DX: E11.65 Type 2 diabetes mellitus with hyperglycemia (principal); I50.9 Heart failure, unspecified
CPT/HCPCS: 36415; 80053; 81001; 83735; 83880; 83970; 84439; 84443; 85025

== ENCOUNTER 2021-12-09 22:26 | Emergency (ER) | payer OTHER ==
[~2021-12-09] VITALS: Ht 172.7 cm; Wt 110.7 kg
[2021-12-09 22:43] VITALS: BP 136/95
== END 2021-12-09 23:58 | disposition home or self-care (01) ==
LOC: EDH 22:26
DX: K46.9 Unspecified abdominal hernia without obstruction or gangrene (principal); E11.9 Type 2 diabetes mellitus without complications; Z79.84 Long term (current) use of oral hypoglycemic drugs; Z88.5 Allergy status to narcotic agent
CPT/HCPCS: 99281

== ENCOUNTER → 2022-02-19 | Outpatient (CLI) | payer OTHER ==
[2022-02-19 08:45] LABS: BASOPHILS % (AUTO) 0.6 % (0.0-5.0); EOSINOPHILS % (AUTO) 1.6 % (0.0-8.0); HEMATOCRIT 41.1 % (42-54); LYMPHOCYTES % (AUTO) 30.7 % (21.0-51.0); MEAN CORPUSCULAR HEMOGLOBIN 23.6 pg (27.0-33.0); MEAN CORPUSCULAR HGB CONC 30.2 g/dL (32.0-36.0); MEAN CORPUSCULAR VOLUME 78.3 fL (79-99); MONOCYTES % (AUTO) 7.6 % (3.0-13.0); NEUTROPHILS % (AUTO) 59.1 % (40.0-77.0); PLATELET COUNT (AUTO) 269 K/uL (130-400); RED BLOOD CELL COUNT(AUTO) 5.25 MIL/uL (4.50-6.20); RED CELL DISTRIBUTION WIDTH 19.6 % (11.0-15.5)
[2022-02-19 09:23] LABS: ALBUMIN 3.4 g/dL (3.5-5.0); BILIRUBIN,TOTAL 0.2 mg/dL (0.2-1.0); POTASSIUM 3.6 mmol/L (3.5-5.1); TOTAL PROTEIN, SERUM 7.3 g/dL (6.0-8.3)
== END | disposition home or self-care (01) ==
LOC: LAB 08:02
PROVIDERS: ATTEND Internal Medicine
DX: K43.2 Incisional hernia without obstruction or gangrene (principal); E29.1 Testicular hypofunction
CPT/HCPCS: 36415; 80053; 82607; 84402; 84403; 85025

== ENCOUNTER → 2022-02-26 | Outpatient (CLI) | payer OTHER ==
[~2022-02-26] MED LIST changes: +IOHEXOL 350 MG/ML 100ML INFUS..BTL IV ONE
== END | disposition home or self-care (01) ==
LOC: RAH 10:28
PROVIDERS: ATTEND Surgery
DX: K42.9 Umbilical hernia without obstruction or gangrene (principal); K43.2 Incisional hernia without obstruction or gangrene
CPT/HCPCS: 74177; Q9967

== ENCOUNTER 2022-07-30 12:00 | Observation (INO) | payer OTHER ==
[~2022-07-30] VITALS: Ht 172.7 cm; Wt 109.8 kg
[2022-07-30 12:52] LABS: BASOPHILS % (AUTO) 0.4 % (0.0-5.0); EOSINOPHILS % (AUTO) 1.4 % (0.0-8.0); HEMATOCRIT 43.9 % (42-54); LYMPHOCYTES % (AUTO) 31.5 % (21.0-51.0); MEAN CORPUSCULAR HEMOGLOBIN 29.4 pg (27.0-33.0); MEAN CORPUSCULAR HGB CONC 33.7 g/dL (32.0-36.0); MEAN CORPUSCULAR VOLUME 87.1 fL (79-99); MONOCYTES % (AUTO) 9.1 % (3.0-13.0); NEUTROPHILS % (AUTO) 56.9 % (40.0-77.0); PLATELET COUNT (AUTO) 251 K/uL (130-400); RED BLOOD CELL COUNT(AUTO) 5.04 MIL/uL (4.50-6.20); RED CELL DISTRIBUTION WIDTH 14.5 % (11.0-15.5); WHITE BLOOD COUNT (AUTO) 5.6 K/uL (4.8-10.8)
[2022-07-30 13:28] LABS: POTASSIUM 3.6 mmol/L (3.5-5.1)
[2022-08-06 09:08] VITALS: BP 153/84
[2022-08-06] MEDS ORDERED: TIZA-211 PO (10:04)
[2022-08-06] MEDS ORDERED: INSU300I SQ (10:04)
[2022-08-06] MEDS ORDERED: DULA1.5P SQ (10:04)
[2022-08-06] MEDS ORDERED: ACET-2247 PO (10:04)
[2022-08-06] MEDS ORDERED: NAPR220C15 PO (10:04)
[2022-08-07] VITALS (16 sets, daily range): BP systolic 126–148; BP diastolic 73–88
[2022-08-07] MEDS ORDERED: BUPIVACAINE/EPI/PF 0.25% 10ML VIAL IJ ONE (04:54)
[2022-08-07] MEDS ORDERED: KETOROLAC 30MG VIAL (30MG/ML) ONE ×2 (05:56→07:51)
[2022-08-07] MEDS ORDERED: 0.9%NACL 1000ML 1,000 ML IV ONE (06:57)
[2022-08-07] MEDS ORDERED: CEFAZOLIN SODIUM 1 GM VIAL ONE (07:00)
[2022-08-07] MEDS ORDERED: LIDOCAINE PF 100MG/5ML (2%) SYRINGE 5ML ONE (07:04)
[2022-08-07] MEDS ORDERED: MIDAZOLAM HCL 1 MG/ML 2ML VIAL ONE (07:05)
[2022-08-07] MEDS ORDERED: PHENYLEPHRINE HCL 10 MG/ML 1ML VIAL IV ONE (07:05)
[2022-08-07] MEDS ORDERED: PROPOFOL 10 MG/ML 20ML VIAL IV ONE (07:05)
[2022-08-07] MEDS ORDERED: ROCURONIUM 10MG/1ML SYR 10 MG/ML ML ONE (07:06)
[2022-08-07] MEDS ORDERED: FENTANYL CITRATE PF 50 MCG/1 ML 5ML AMP IV ONE (07:06)
[2022-08-07] MEDS ORDERED: ROPIVACAINE 0.5% 5MG/ML 30ML IJ ONE (07:51)
[2022-08-07] MEDS ORDERED: ONDANSETRON 4MG INJ ONE (07:52)
[2022-08-07] MEDS ORDERED: GLYCOPYRROLATE 1 MG/5 ML SYRINGE ONE (07:55)
[2022-08-07] MEDS ORDERED: NEOSTIGMINE 5MG/5ML SYR IV ONE (07:55)
== END 2022-08-07 10:00 | disposition home or self-care (01) ==
LOC: EDSTATUS 12:00 → DAHIP 08-07 06:29
PROVIDERS: ADMIT Surgery; ATTEND Surgery
DX: K43.9 Ventral hernia without obstruction or gangrene (principal); E11.9 Type 2 diabetes mellitus without complications; Z79.899 Other long term (current) drug therapy; Z98.890 Other specified postprocedural states
CPT/HCPCS: 80048; 85025; 87426 ×2; 36415; 93005; 49560; 82948 ×2; G0378; G0379; J7120; A4606; J3010; J0690; J3490; J2710; J7030; J2001; J2250; J2704; J2405; J1885 ×2; J2795; J2370; A4215; A4223; A4222; A4221; A4663; A4600

== ENCOUNTER → 2022-08-25 | Outpatient (CLI) | payer OTHER ==
[~2022-08-25] MED LIST changes: +ACET-2247 PO; +DULA1.5P SQ; +INSU300I SQ; -IOHEXOL 350 MG/ML 100ML INFUS..BTL IV ONE; -METF-444 PO; +NAPR220C15 PO; +TIZA-211 PO
== END | disposition home or self-care (01) ==
LOC: RAH 14:39
PROVIDERS: ATTEND Internal Medicine
DX: K42.9 Umbilical hernia without obstruction or gangrene (principal); R10.32 Left lower quadrant pain; K57.92 Diverticulitis of intestine, part unspecified, without perforation or abscess without bleeding; Z98.890 Other specified postprocedural states
CPT/HCPCS: 74176

== ENCOUNTER 2022-11-28 11:21 | Emergency (ER) | payer OTHER ==
[~2022-11-28] VITALS: Ht 172.7 cm; Wt 104.3 kg
[2022-11-28] MEDS ORDERED: ACETAMINOPHEN 500 MG TABLET PO ONE (12:00)
[2022-11-28] MEDS ORDERED: KETOROLAC 60 MG VIAL (30MG/ML) IM ONE (13:30)
[2022-11-28] MEDS ORDERED: NAPR-1084 PO (14:19)
[2022-11-28 14:32] VITALS: BP 132/74
== END 2022-11-28 14:31 | disposition home or self-care (01) ==
LOC: EDH 11:21
DX: S01.01XA Laceration without foreign body of scalp, initial encounter (principal); M94.0 Chondrocostal junction syndrome [Tietze]; E11.9 Type 2 diabetes mellitus without complications; Z79.899 Other long term (current) drug therapy; Z79.4 Long term (current) use of insulin; Z88.5 Allergy status to narcotic agent; W01.198A Fall on same level from slipping, tripping and stumbling with subsequent striking against other object, initial encounter; Y93.89 Activity, other specified; Y92.89 Other specified places as the place of occurrence of the external cause; Y99.8 Other external cause status
CPT/HCPCS: 99285; 70450; 71101; 72125; 96372; J1885

== ENCOUNTER → 2022-12-02 | Outpatient (CLI) | payer OTHER ==
[~2022-12-02] MED LIST changes: +NAPR-1084 PO
[2022-12-02 12:03] LABS: BASOPHILS % (AUTO) 0.5 % (0.0-5.0); EOSINOPHILS % (AUTO) 2.1 % (0.0-8.0); HEMATOCRIT 43.7 % (42-54); LYMPHOCYTES % (AUTO) 31.5 % (21.0-51.0); MEAN CORPUSCULAR HEMOGLOBIN 30.7 pg (27.0-33.0); MEAN CORPUSCULAR HGB CONC 34.8 g/dL (32.0-36.0); MEAN CORPUSCULAR VOLUME 88.3 fL (79-99); MONOCYTES % (AUTO) 7.3 % (3.0-13.0); NEUTROPHILS % (AUTO) 58.1 % (40.0-77.0); PLATELET COUNT (AUTO) 228 K/uL (130-400); RED BLOOD CELL COUNT(AUTO) 4.95 MIL/uL (4.50-6.20); RED CELL DISTRIBUTION WIDTH 12.7 % (11.0-15.5); WHITE BLOOD COUNT (AUTO) 4.2 K/uL (4.8-10.8)
[2022-12-02 12:05] LABS: HEMOGLOBIN A1C 9.5 % (4.0-6.0)
[2022-12-02 12:33] LABS: ALBUMIN 3.7 g/dL (3.5-5.0); BILIRUBIN,DIRECT 0.1 mg/dL (0.0-0.3); CREATININE 0.8 mg/dL (0.5-1.5); THYROID STIMULATING HORMONE 2.09 uIU/mL (0.36-3.74); TOTAL PROTEIN, SERUM 7.4 g/dL (6.0-8.3)
== END | disposition home or self-care (01) ==
LOC: LAB 11:18
PROVIDERS: ATTEND Internal Medicine
DX: I10 Essential (primary) hypertension (principal); K42.9 Umbilical hernia without obstruction or gangrene; K59.04 Chronic idiopathic constipation; K40.90 Unilateral inguinal hernia, without obstruction or gangrene, not specified as recurrent; R10.32 Left lower quadrant pain
CPT/HCPCS: 36415; 80053; 80076; 82043; 82607; 83036; 84402; 84403; 84443; 85025

== ENCOUNTER → 2023-01-08 | Outpatient (CLI) | payer OTHER ==
[2023-01-08 09:45] LABS: HEMATOCRIT 43.1 % (42-54); LYMPHOCYTES % (AUTO) 33.8 % (21.0-51.0); MEAN CORPUSCULAR HGB CONC 33.4 g/dL (32.0-36.0); MEAN CORPUSCULAR VOLUME 89.8 fL (79-99); MONOCYTES % (AUTO) 8.8 % (3.0-13.0); NEUTROPHILS % (AUTO) 52.1 % (40.0-77.0); PLATELET COUNT (AUTO) 263 K/uL (130-400)
[2023-01-08 10:24] LABS: CREATININE 0.9 mg/dL (0.5-1.5); CRP QUANTITATIVE 19.6 mg/L (0.00-9.0); MAGNESIUM 1.9 mg/dL (1.80-2.40); POTASSIUM 4.1 mmol/L (3.5-5.1); TOTAL PROTEIN, SERUM 7.4 g/dL (6.0-8.3); URIC ACID 6.6 mg/dL (2.6-7.2)
[2023-01-08 11:08] LABS: ERYTHROCYTE SEDIMENTATION RATE 30 MM/HR (0-20)
== END | disposition home or self-care (01) ==
LOC: LAB 08:07
PROVIDERS: ATTEND Internal Medicine
DX: Z13.220 Encounter for screening for lipoid disorders (principal); Z12.11 Encounter for screening for malignant neoplasm of colon; E11.65 Type 2 diabetes mellitus with hyperglycemia; I10 Essential (primary) hypertension; M25.50 Pain in unspecified joint; M47.816 Spondylosis without myelopathy or radiculopathy, lumbar region; R53.83 Other fatigue
CPT/HCPCS: 36415; 80053; 82270; 82306; 82607; 83036; 83735; 84153; 84402; 84403; 84443; 84550; 85025; 85651; 86038; 86140; 86160; 86215; 86235; 86376; 86431

== ENCOUNTER → 2023-03-03 | Outpatient (CLI) | payer OTHER ==
[2023-03-03 08:57] LABS: BASOPHILS % (AUTO) 0.2 % (0.0-5.0); EOSINOPHILS % (AUTO) 0.9 % (0.0-8.0); HEMATOCRIT 44.5 % (42-54); LYMPHOCYTES % (AUTO) 27.7 % (21.0-51.0); MEAN CORPUSCULAR HEMOGLOBIN 30.2 pg (27.0-33.0); MEAN CORPUSCULAR HGB CONC 33.7 g/dL (32.0-36.0); MEAN CORPUSCULAR VOLUME 89.5 fL (79-99); MONOCYTES % (AUTO) 7.1 % (3.0-13.0); NEUTROPHILS % (AUTO) 63.8 % (40.0-77.0); PLATELET COUNT (AUTO) 223 K/uL (130-400); RED BLOOD CELL COUNT(AUTO) 4.97 MIL/uL (4.50-6.20); RED CELL DISTRIBUTION WIDTH 12.6 % (11.0-15.5); WHITE BLOOD COUNT (AUTO) 5.9 K/uL (4.8-10.8)
[2023-03-03 09:00] LABS: APPEARANCE,URINE CLEAR (CLEAR); BILIRUBIN,URINE NEGATIVE (NEGATIVE); COLOR,URINE LIGHT-YELLOW (YELLOW); GLUCOSE, URINE (UA) NEGATIVE (NEGATIVE); KETONES,URINE NEGATIVE (NEGATIVE); LEUKOCYTE ESTERASE ,URINE NEGATIVE Leu/uL (NEGATIVE); NITRATE,URINE NEGATIVE (NEGATIVE); OCCULT BLOOD,URINE NEGATIVE (NEGATIVE); PROTEIN,URINE NEGATIVE (NEGATIVE); UROBILINOGEN,URINE 0.2 mg/dL (0.2-1.0)
[2023-03-03 10:02] LABS: ERYTHROCYTE SEDIMENTATION RATE 16 MM/HR (0-20)
== END | disposition home or self-care (01) ==
LOC: LAB 08:23
PROVIDERS: ATTEND Internal Medicine
DX: I10 Essential (primary) hypertension (principal); R79.82 Elevated C-reactive protein (CRP); E11.65 Type 2 diabetes mellitus with hyperglycemia
CPT/HCPCS: 36415; 81003; 85025; 85651; 86140; 87088

== ENCOUNTER → 2023-04-02 | Outpatient (CLI) | payer OTHER | END | disposition home or self-care (01) | LOC: LAB 09:03 | PROVIDERS: ATTEND Internal Medicine | DX: M47.816 Spondylosis without myelopathy or radiculopathy, lumbar region (principal); M19.90 Unspecified osteoarthritis, unspecified site; M50.90 Cervical disc disorder, unspecified, unspecified cervical region; M75.41 Impingement syndrome of right shoulder; M79.10 Myalgia, unspecified site | CPT/HCPCS: 36415; 83516; 84550; 86038; 86160; 86215; 86235; 86376; 86431; 86812 ==

== ENCOUNTER → 2023-04-16 | Outpatient (CLI) | payer OTHER | END | disposition home or self-care (01) | LOC: RAH 07:53 | PROVIDERS: ATTEND Internal Medicine | DX: S83.241A Other tear of medial meniscus, current injury, right knee, initial encounter (principal); S83.281A Other tear of lateral meniscus, current injury, right knee, initial encounter; S83.411A Sprain of medial collateral ligament of right knee, initial encounter; M47.26 Other spondylosis with radiculopathy, lumbar region; M47.16 Other spondylosis with myelopathy, lumbar region; M17.0 Bilateral primary osteoarthritis of knee; M48.07 Spinal stenosis, lumbosacral region; Z98.890 Other specified postprocedural states; X58.XXXA Exposure to other specified factors, initial encounter; Y93.89 Activity, other specified; Y92.89 Other specified places as the place of occurrence of the external cause; Y99.8 Other external cause status | CPT/HCPCS: 72100; 72148; 73560; 73721 ==

== ENCOUNTER → 2023-07-10 | Outpatient (CLI) | payer OTHER ==
[2023-07-10 10:10] LABS: BASOPHILS # (AUTO) 0.02 K/uL (0.00-0.20); BASOPHILS % (AUTO) 0.5 % (0.0-5.0); EOSINOPHILS # (AUTO) 0.09 K/uL (0.00-0.70); EOSINOPHILS % (AUTO) 2.3 % (0.0-8.0); HEMATOCRIT 47.7 % (42-54); IMMATURE GRANULOCYTE ABSOLUTE 0.01 K/uL (0-1); LYMPHOCYTES # (AUTO) 1.7 K/uL (1.0-4.8); LYMPHOCYTES % (AUTO) 42.6 % (21.0-51.0); MEAN CORPUSCULAR HEMOGLOBIN 30.5 pg (27.0-33.0); MEAN CORPUSCULAR HGB CONC 34.8 g/dL (32.0-36.0); MEAN CORPUSCULAR VOLUME 87.5 fL (79-99); MONOCYTES # (AUTO) 0.3 K/uL (0.1-1.0); MONOCYTES % (AUTO) 8.4 % (3.0-13.0); NEUTROPHILS # (AUTO) 1.8 K/uL (1.8-7.7); NEUTROPHILS % (AUTO) 45.9 % (40.0-77.0); PLATELET COUNT (AUTO) 221 K/uL (130-400); RED BLOOD CELL COUNT(AUTO) 5.45 MIL/uL (4.50-6.20); RED CELL DISTRIBUTION WIDTH 12.6 % (11.0-15.5); WHITE BLOOD COUNT (AUTO) 3.9 K/uL (4.8-10.8)
[2023-07-10 10:11] LABS: ADD UA MICROSCOPIC YES; APPEARANCE,URINE CLEAR (CLEAR); BILIRUBIN,URINE NEGATIVE (NEGATIVE); COLOR,URINE YELLOW (YELLOW); GLUCOSE, URINE (UA) NEGATIVE (NEGATIVE); KETONES,URINE NEGATIVE (NEGATIVE); LEUKOCYTE ESTERASE ,URINE NEGATIVE Leu/uL (NEGATIVE); NITRATE,URINE NEGATIVE (NEGATIVE); OCCULT BLOOD,URINE NEGATIVE (NEGATIVE); PH,URINE 5.5 (5.0-8.0); PROTEIN,URINE 20 mg/dL (NEGATIVE); UROBILINOGEN,URINE 0.2 mg/dL (0.2-1.0)
[2023-07-10 10:12] LABS: MUCUS,URINE RARE LPF (None Seen); OTHER CASTS, URINE 1 /LPF (None Seen); RBC,URINE 0-1 /HPF (0-1); WBC,URINE 0-1 /HPF (0-1)
[2023-07-10 10:14] LABS: CREATININE,URINE RANDOM 286 mg/dL (30-135)
[2023-07-10 10:21] LABS: HEMOGLOBIN A1C 6.1 % (4.0-6.0)
[2023-07-10 10:32] LABS: ALBUMIN 3.8 g/dL (3.5-5.0); BILIRUBIN,DIRECT 0.1 mg/dL (0.0-0.3); BILIRUBIN,TOTAL 0.5 mg/dL (0.2-1.0); THYROID STIMULATING HORMONE 1.96 uIU/mL (0.36-3.74); TOTAL PROTEIN, SERUM 7.7 g/dL (6.0-8.3)
== END | disposition home or self-care (01) ==
LOC: LAB 09:32
PROVIDERS: ATTEND Internal Medicine
DX: Z13.220 Encounter for screening for lipoid disorders (principal); Z12.5 Encounter for screening for malignant neoplasm of prostate; Z13.29 Encounter for screening for other suspected endocrine disorder; M47.816 Spondylosis without myelopathy or radiculopathy, lumbar region; E11.65 Type 2 diabetes mellitus with hyperglycemia; I10 Essential (primary) hypertension; E34.9 Endocrine disorder, unspecified; R79.82 Elevated C-reactive protein (CRP)
CPT/HCPCS: 36415; 80053; 80061; 80076; 81001; 82570; 83036; 84153; 84154; 84443; 85025

== ENCOUNTER → 2023-10-21 | Outpatient (CLI) | payer OTHER ==
[2023-10-21 08:01] LABS: APPEARANCE,URINE CLEAR (CLEAR); BILIRUBIN,URINE NEGATIVE (NEGATIVE); COLOR,URINE LIGHT-YELLOW (YELLOW); GLUCOSE, URINE (UA) NEGATIVE (NEGATIVE); KETONES,URINE NEGATIVE (NEGATIVE); LEUKOCYTE ESTERASE ,URINE NEGATIVE Leu/uL (NEGATIVE); NITRATE,URINE NEGATIVE (NEGATIVE); OCCULT BLOOD,URINE NEGATIVE (NEGATIVE); PROTEIN,URINE NEGATIVE (NEGATIVE); UROBILINOGEN,URINE 0.2 mg/dL (0.2-1.0)
[2023-10-21 08:04] LABS: HEMOGLOBIN A1C 6.8 % (4.0-6.0)
[2023-10-21 08:32] LABS: ADD UA MICROSCOPIC NO
[2023-10-21 08:32] LABS: ALBUMIN 3.6 g/dL (3.5-5.0); BILIRUBIN,DIRECT 0.1 mg/dL (0.0-0.3); BILIRUBIN,TOTAL 0.4 mg/dL (0.2-1.0); CREATININE 0.9 mg/dL (0.5-1.5); POTASSIUM 3.9 mmol/L (3.5-5.1); THYROID STIMULATING HORMONE 3.12 uIU/mL (0.36-3.74); TOTAL PROTEIN, SERUM 7.2 g/dL (6.0-8.3)
[2023-10-22 08:18] LABS: PSA ULTRASENSITIVE 0.395 ng/mL (0.000-4.000)
== END | disposition home or self-care (01) ==
LOC: LAB 07:14
PROVIDERS: ATTEND Internal Medicine
DX: Z12.5 Encounter for screening for malignant neoplasm of prostate (principal); Z13.29 Encounter for screening for other suspected endocrine disorder; E78.5 Hyperlipidemia, unspecified; E34.9 Endocrine disorder, unspecified; G47.09 Other insomnia; I10 Essential (primary) hypertension; R53.83 Other fatigue
CPT/HCPCS: 36415; 80053; 80061; 81003; 82043; 82248; 82306; 82570; 82607; 83036; 84153; 84402; 84403; 84443

== ENCOUNTER → 2024-03-18 | Outpatient (CLI) | payer OTHER ==
[2024-03-18 09:42] LABS: BASOPHILS # (AUTO) 0.02 K/uL (0.00-0.20); BASOPHILS % (AUTO) 0.5 % (0.0-5.0); EOSINOPHILS # (AUTO) 0.16 K/uL (0.00-0.70); EOSINOPHILS % (AUTO) 3.7 % (0.0-8.0); HEMATOCRIT 47.8 % (42-54); IMMATURE GRANULOCYTE ABSOLUTE 0.01 K/uL (0-1); LYMPHOCYTES # (AUTO) 1.8 K/uL (1.0-4.8); LYMPHOCYTES % (AUTO) 41.2 % (21.0-51.0); MEAN CORPUSCULAR HEMOGLOBIN 30.6 pg (27.0-33.0); MEAN CORPUSCULAR HGB CONC 34.3 g/dL (32.0-36.0); MEAN CORPUSCULAR VOLUME 89.2 fL (79-99); MONOCYTES # (AUTO) 0.3 K/uL (0.1-1.0); MONOCYTES % (AUTO) 7.1 % (3.0-13.0); NEUTROPHILS # (AUTO) 2.1 K/uL (1.8-7.7); NEUTROPHILS % (AUTO) 47.3 % (40.0-77.0); PLATELET COUNT (AUTO) 215 K/uL (130-400); RED BLOOD CELL COUNT(AUTO) 5.36 MIL/uL (4.50-6.20); RED CELL DISTRIBUTION WIDTH 12.9 % (11.0-15.5); WHITE BLOOD COUNT (AUTO) 4.3 K/uL (4.8-10.8)
[2024-03-18 09:50] LABS: APPEARANCE,URINE CLEAR (CLEAR); BILIRUBIN,URINE NEGATIVE (NEGATIVE); COLOR,URINE LIGHT-YELLOW (YELLOW); GLUCOSE, URINE (UA) NEGATIVE (NEGATIVE); KETONES,URINE NEGATIVE (NEGATIVE); LEUKOCYTE ESTERASE ,URINE NEGATIVE Leu/uL (NEGATIVE); NITRATE,URINE NEGATIVE (NEGATIVE); OCCULT BLOOD,URINE NEGATIVE (NEGATIVE); PH,URINE 5.5 (5.0-8.0); PROTEIN,URINE NEGATIVE (NEGATIVE); UROBILINOGEN,URINE 0.2 mg/dL (0.2-1.0)
[2024-03-18 09:51] LABS: HEMOGLOBIN A1C 6.2 % (4.0-6.0)
[2024-03-18 09:55] LABS: ADD UA MICROSCOPIC NO
[2024-03-18 11:14] LABS: POTASSIUM 4.5 mmol/L (3.5-5.1)
[2024-03-18 11:15] LABS: BILIRUBIN,DIRECT 0.1 mg/dL (0.0-0.3); BILIRUBIN,TOTAL 0.4 mg/dL (0.2-1.0); CREATININE 0.9 mg/dL (0.5-1.3); TOTAL PROTEIN, SERUM 7.9 g/dL (6.0-8.3)
[2024-03-18 11:16] LABS: ALBUMIN 4.1 g/dL (3.5-5.0)
[2024-03-19 08:27] LABS: PSA ULTRASENSITIVE 0.332 ng/mL (0.000-4.000)
== END | disposition home or self-care (01) ==
LOC: LAB 09:16
PROVIDERS: ATTEND Internal Medicine
DX: Z12.5 Encounter for screening for malignant neoplasm of prostate (principal); E11.65 Type 2 diabetes mellitus with hyperglycemia; G63 Polyneuropathy in diseases classified elsewhere; E78.5 Hyperlipidemia, unspecified; M41.20 Other idiopathic scoliosis, site unspecified; M47.816 Spondylosis without myelopathy or radiculopathy, lumbar region; R53.83 Other fatigue
CPT/HCPCS: 36415; 80053; 80061; 80076; 81003; 82043; 82248; 82306; 82570; 82607; 83036; 84153; 84402; 84403; 85025

== ENCOUNTER → 2024-10-07 | Outpatient (CLI) | payer OTHER ==
[2024-10-07 08:56] LABS: BASOPHILS # (AUTO) 0.02 K/uL (0.00-0.20); BASOPHILS % (AUTO) 0.4 % (0.0-5.0); EOSINOPHILS # (AUTO) 0.13 K/uL (0.00-0.70); EOSINOPHILS % (AUTO) 2.4 % (0.0-8.0); HEMATOCRIT 41.7 % (42-54); LYMPHOCYTES # (AUTO) 2.1 K/uL (1.0-4.8); LYMPHOCYTES % (AUTO) 39.4 % (21.0-51.0); MEAN CORPUSCULAR HEMOGLOBIN 31.4 pg (27.0-33.0); MEAN CORPUSCULAR HGB CONC 34.5 g/dL (32.0-36.0); MEAN CORPUSCULAR VOLUME 90.8 fL (79-99); MONOCYTES # (AUTO) 0.4 K/uL (0.1-1.0); MONOCYTES % (AUTO) 7.6 % (3.0-13.0); NEUTROPHILS # (AUTO) 2.7 K/uL (1.8-7.7); NEUTROPHILS % (AUTO) 50.2 % (40.0-77.0); PLATELET COUNT (AUTO) 204 K/uL (130-400); RED BLOOD CELL COUNT(AUTO) 4.59 MIL/uL (4.50-6.20); RED CELL DISTRIBUTION WIDTH 12.4 % (11.0-15.5); WHITE BLOOD COUNT (AUTO) 5.4 K/uL (4.8-10.8)
[2024-10-07 09:04] LABS: HEMOGLOBIN A1C 6.9 % (4.0-6.0)
[2024-10-07 09:28] LABS: APPEARANCE,URINE CLEAR (CLEAR); BILIRUBIN,URINE NEGATIVE (NEGATIVE); COLOR,URINE YELLOW (YELLOW); GLUCOSE, URINE (UA) 50 mg/dL (NEGATIVE); KETONES,URINE NEGATIVE (NEGATIVE); LEUKOCYTE ESTERASE ,URINE NEGATIVE Leu/uL (NEGATIVE); NITRATE,URINE NEGATIVE (NEGATIVE); OCCULT BLOOD,URINE NEGATIVE (NEGATIVE); PROTEIN,URINE 10 mg/dL (NEGATIVE)
[2024-10-07 09:41] LABS: ADD UA MICROSCOPIC YES
[2024-10-07 09:42] LABS: BILIRUBIN,DIRECT 0.1 mg/dL (0.0-0.3); BILIRUBIN,TOTAL 0.4 mg/dL (0.2-1.0); CREATININE 0.8 mg/dL (0.5-1.3); POTASSIUM 3.9 mmol/L (3.5-5.1); THYROID STIMULATING HORMONE 1.41 uIU/mL (0.36-3.74); TOTAL PROTEIN, SERUM 7.5 g/dL (6.0-8.3)
[2024-10-07 09:51] LABS: RBC,URINE 0-1 /HPF (0-1); WBC,URINE 0-1 /HPF (0-1)
[2024-10-08 07:15] LABS: PSA ULTRASENSITIVE 0.448 ng/mL (0.000-4.000)
== END | disposition home or self-care (01) ==
LOC: LAB 07:13
PROVIDERS: ATTEND Internal Medicine
DX: Z12.5 Encounter for screening for malignant neoplasm of prostate (principal); I10 Essential (primary) hypertension; E11.65 Type 2 diabetes mellitus with hyperglycemia; J01.90 Acute sinusitis, unspecified; R53.83 Other fatigue
CPT/HCPCS: 36415; 80053; 80061; 81001; 82043; 82248; 82570; 82607; 83036; 84153; 84402; 84403; 84443; 85025

== ENCOUNTER → 2025-05-25 | Outpatient (CLI) | payer OTHER ==
[2025-05-25 08:18] LABS: IMMATURE GRANULOCYTE ABSOLUTE 0.01 K/uL (0-1); NUCLEATED RED BLOOD CELLS 0.0 % (0.0-0.19); PLATELET COUNT (AUTO) 193 K/uL (130-400); RED BLOOD CELL COUNT(AUTO) 4.64 MIL/uL (4.50-6.20); RED CELL DISTRIBUTION WIDTH 12.7 % (11.0-15.5); WHITE BLOOD COUNT (AUTO) 5.3 K/uL (4.8-10.8)
[2025-05-25 08:31] LABS: ADD UA MICROSCOPIC NO; APPEARANCE,URINE CLEAR (CLEAR); GLUCOSE, URINE (UA) NEGATIVE (NEGATIVE); LEUKOCYTE ESTERASE ,URINE NEGATIVE Leu/uL (NEGATIVE); NITRATE,URINE NEGATIVE (NEGATIVE); OCCULT BLOOD,URINE NEGATIVE (NEGATIVE)
[2025-05-25 09:33] LABS: ASPARTATE AMINOTRANSFERASE 31.0 U/L (10-37); CREATININE 0.9 mg/dL (0.5-1.3); GLOMERULAR FILTR. RATE CALC 101.0 mL/min (>90); GLUCOSE,RANDOM 142.0 mg/dL (70-105); LDL DIRECT 136.0 mg/dL (0-99); SODIUM SERUM 137.0 mmol/L (136-145); TOTAL PROTEIN, SERUM 7.4 g/dL (6.0-8.3); UREA NITROGEN, BLOOD 17.0 mg/dL (7-18)
== END | disposition home or self-care (01) ==
LOC: LAB 07:29
PROVIDERS: ATTEND Internal Medicine
DX: Z13.1 Encounter for screening for diabetes mellitus (principal); I10 Essential (primary) hypertension; E78.5 Hyperlipidemia, unspecified; E55.9 Vitamin D deficiency, unspecified; J30.9 Allergic rhinitis, unspecified; M15.9 Polyosteoarthritis, unspecified; R53.83 Other fatigue; Z12.5 Encounter for screening for malignant neoplasm of prostate
CPT/HCPCS: 36415; 80053; 80061; 80076; 81003; 82043; 82306; 82570; 82607; 83036; 84153; 84154; 84402; 84403; 84443; 85025

== ENCOUNTER → 2025-06-13 | Outpatient (CLI) | payer OTHER ==
--- NOTE | 2025-06-13 15:49 | HMCIMG ---
EXAMINATION: SOFT TISSUE ULTRASOUND OF THE RIGHT LOWER ABDOMEN REGION. CLINICAL HISTORY: Palpable swelling. COMPARISON: CT abdomen and pelvis without contrast dated 11/29/2024. TECHNIQUE: Transverse and longitudinal images were obtained. In addition, color Doppler is medically necessary to assess vascularity and blood flow. FINDINGS: No focal lesions/collection in the subcutaneous/muscular planes. No evidence of hernia. IMPRESSION: No significant abnormality seen. No significant interval change. /Jose
== END | disposition home or self-care (01) ==
LOC: RAH 07:46
PROVIDERS: ATTEND Internal Medicine
DX: K46.9 Unspecified abdominal hernia without obstruction or gangrene (principal)
CPT/HCPCS: 76705